=== PATIENT | male | born 1970 | race Caucasian/White ===

== ENCOUNTER 2020-08-23 03:29 | Emergency (ER) | payer BC ==
[2020-08-23 03:39] VITALS: RESP 18
[2020-08-23] MEDS ORDERED: KETOROLAC 15 MG/ML 1 ML VIAL IVP STA (03:55)
[2020-08-23] MEDS ORDERED: HYDROmorphone 0.5 MG/0.5 ML SYRINGE IVP STA ×2 (03:55→06:24)
[2020-08-23] MEDS ORDERED: ONDANSETRON 4 MG/2 ML VIAL IVP STA (03:55)
[2020-08-23 04:03] LABS: Basophils # (A) 0.1 k/uL (0-0.2); Basophils % (A) 1 %; Eosinophils # (A) 0.2 k/uL (0-0.7); Eosinophils % (A) 2 %; HCT 42.6 % (39.0-53.0); HGB 14.9 gm/dL (13.0-17.5); Lymphocytes # (A) 4.2 k/uL (1.0-4.8); Lymphocytes % (A) 50 %; MCH 32.5 pg (25.0-35.0); MCHC 35.1 g/dL (31.0-37.0); MCV 92.6 fL (80.0-100.0); Mean Platelet Volume 7.1; Monocytes # (A) 0.6 k/uL (0-1.0); Monocytes % (A) 8 %; Neutrophils # (A) 3.1 k/uL (1.3-7.7); Neutrophils % (A) 37 %; Platelet Count 305 k/uL (150-450); RDW 11.8 % (11.5-15.5); WBC 8.4 k/uL (3.8-10.6)
--- NOTE | 2020-08-23 04:08 | ED ---
Abdominal Pain HPI - General Chief Complaint: Back Pain/Injury Stated Complaint: Possible kidney stone Time Seen by Provider: 08/23/20 03:50 Source: patient Mode of arrival: ambulatory Limitations: no limitations - History of Present Illness Initial Comments: This patient is 50-year-old man presenting with pain that he states is similar to previous episode of kidney stone. MD Complaint: flank pain Onset/Timin -: hour(s) Location: L flank Radiation: none Migration to: no migration Severity: severe Quality: sharp Consistency: constant Improves With: nothing Worsens With: nothing Associated Symptoms: nausea, vomiting - Related Data Home Medications Medication Instructions Recorded Confirmed Ondansetron Odt [Zofran ODT] 4 mg PO Q8HR PRN 08/23/20 08/23/20 Previous Rx's Medication Instructions Recorded HYDROcodone/APAP 5-325MG [[place] 1 tab PO Q4HR PRN 3 Days #18 tab 08/23/20 5-325] Tamsulosin [Flomax] 0.4 mg PO DAILY #14 cap 08/23/20 Allergies Allergy/AdvReac Type Severity Reaction Status Date / Time meperidine [From Demerol] Allergy Nausea & Verified 08/23/20 15:58 Vomiting & Diarrhea Review of Systems ROS Statement: Those systems with pertinent positive or pertinent negative responses have been documented in the HPI. ROS Other: All systems not noted in ROS Statement are negative. Constitutional: Denies: fever, chills Respiratory: Denies: cough, dyspnea Cardiovascular: Denies: chest pain, palpitations, edema Gastrointestinal: Reports: as per HPI, abdominal pain, nausea, vomiting. Denies: diarrhea, constipation Genitourinary: Denies: dysuria, frequency, hematuria, testicular pain, testicular mass Musculoskeletal: Denies: back pain Skin: Denies: rash Neurological: Denies: headache Past Medical History Additional Past Medical History / Comment(s): Kindey stones, broken neck History of Any Multi-Drug Resistant Organisms: None Reported Past Surgical History: Appendectomy Past Psychological History: No Psychological Hx Reported Smoking Status: Never smoker Past Alcohol Use History: Rare Past Drug Use History: None Reported General Exam Limitations: no limitations General appearance: alert, in distress Head exam: Present: atraumatic, normocephalic Eye exam: Present: normal appearance. Absent: scleral icterus, conjunctival injection Neck exam: Present: normal inspection, full ROM Respiratory exam: Present: normal lung sounds bilaterally. Absent: respiratory distress, wheezes, rales, rhonchi, stridor Cardiovascular Exam: Present: regular rate, normal rhythm, normal heart sounds. Absent: systolic murmur, diastolic murmur, rubs, gallop GI/Abdominal exam: Present: soft. Absent: distended, tenderness, guarding, rebound, rigid, mass Extremities exam: Present: normal inspection, normal capillary refill. Absent: pedal edema, calf tenderness Back exam: Present: normal inspection, CVA tenderness (L). Absent: CVA tenderness (R) Neurological exam: Present: alert Skin exam: Present: warm, dry, intact, normal color. Absent: rash Course Vital Signs 08/23/20 08/23/20 03:37 06:55 Temperature 97.4 F L 98.0 F Pulse Rate 85 57 L Respiratory 18 18 Rate Blood Pressure 119/73 121/78 O2 Sat by Pulse 100 98 Oximetry Medical Decision Making - Lab Data Result diagrams: 08/23/20 03:54 08/23/20 03:54 Lab Results 08/23/20 08/23/20 Range/Units 03:54 03:54 WBC 8.4 (3.8-10.6) k/uL RBC 4.60 (4.30-5.90) m/uL Hgb 14.9 (13.0-17.5) gm/dL Hct 42.6 (39.0-53.0) % MCV 92.6 (80.0-100.0) fL MCH 32.5 (25.0-35.0) pg MCHC 35.1 (31.0-37.0) g/dL RDW 11.8 (11.5-15.5) % Plt Count 305 (150-450) k/uL MPV 7.1 Neutrophils % 37 % Lymphocytes % 50 % Monocytes % 8 % Eosinophils % 2 % Basophils % 1 % Neutrophils # 3.1 (1.3-7.7) k/uL Lymphocytes # 4.2 (1.0-4.8) k/uL Monocytes # 0.6 (0-1.0) k/uL Eosinophils # 0.2 (0-0.7) k/uL Basophils # 0.1 (0-0.2) k/uL Sodium 139 (137-145) mmol/L Potassium 3.2 L (3.5-5.1) mmol/L Chloride 108 H (98-107) mmol/L Carbon Dioxide 21 L (22-30) mmol/L Anion Gap 10 mmol/L BUN 18 (9-20) mg/dL Creatinine 1.15 (0.66-1.25) mg/dL Est GFR (CKD-EPI)AfAm 85 (>60 ml/min/1.73 sqM) Est GFR (CKD-EPI)NonAf 74 (>60 ml/min/1.73 sqM) Glucose 103 H (74-99) mg/dL Calcium 9.9 (8.4-10.2) mg/dL Total Bilirubin 0.6 (0.2-1.3) mg/dL AST 46 (17-59) U/L ALT 46 (4-49) U/L Alkaline Phosphatase 105 (38-126) U/L Total Protein 7.3 (6.3-8.2) g/dL Albumin 4.6 (3.5-5.0) g/dL Amylase 60 (30-110) U/L Lipase 137 (23-300) U/L Disposition Clinical Impression: Calculus of kidney Disposition: HOME SELF-CARE Condition: Good Instructions (If sedation given, give patient instructions): Kidney Stones (ED) Prescriptions: Tamsulosin [Flomax] 0.4 mg PO DAILY #14 cap HYDROcodone/APAP 5-325MG [[place] 5-325] 1 tab PO Q4HR PRN 3 Days #18 tab PRN Reason: Pain Is patient prescribed a controlled substance at d/c from ED?: Yes When asked, does pt state using other controlled substances?: No If prescribed controlled substance>3 days was MAPS reviewed?: Prescribed <3 Days If opioid is for acute pain is fill amount 7 days or less?: Yes If Rx opioid, was Start Talking consent form obtained?: Yes Referrals: Corona Ware MD [Primary Care Provider] - 1-2 days Rudy Corrigan MD [STAFF PHYSICIAN] - 1-2 days
[2020-08-23 04:11] LABS: Albumin 4.6 g/dL (3.5-5.0); Calcium 9.9 mg/dL (8.4-10.2); Potassium 3.2 mmol/L (3.5-5.1); Total Bilirubin 0.6 mg/dL (0.2-1.3); Total Protein 7.3 g/dL (6.3-8.2)
[2020-08-23] MEDS ORDERED: TAMSULOSIN 0.4 MG CAP.ER.24H PO STA (05:01)
--- NOTE | 2020-08-23 05:18 | CT ---
EXAM: CT Abdomen and Pelvis Without Intravenous Contrast CLINICAL HISTORY: ITS.REASON CT Reason: stone protocol, l flank pain TECHNIQUE: Axial computed tomography images of the abdomen and pelvis without intravenous contrast. CTDI is 13.07 mGy and DLP is 779.3 mGy-cm. This CT exam was performed using one or more of the following dose reduction techniques: automated exposure control, adjustment of the mA and/or kV according to patient size, and/or use of iterative reconstruction technique. COMPARISON: No relevant prior studies available. FINDINGS: Lung bases: Unremarkable. No mass. No consolidation. ABDOMEN: Liver: Unremarkable. Gallbladder and bile ducts: Unremarkable. No calcified stones. No ductal dilation. Pancreas: Unremarkable. No ductal dilation. Spleen: Unremarkable. No splenomegaly. Adrenals: Unremarkable. No mass. Kidneys and ureters: Left-sided proximal ureteral stone measuring up to 3 mm with mild left hydroureteronephrosis. Stomach and bowel: Unremarkable. No obstruction. No mucosal thickening. PELVIS: Appendix: Surgically absent. Bladder: Unremarkable. No stones. Reproductive: Unremarkable as visualized. ABDOMEN and PELVIS: Intraperitoneal space: Unremarkable. No free air. No significant fluid collection. Bones/joints: No acute fracture. No dislocation. Soft tissues: Unremarkable. Vasculature: Unremarkable. No abdominal aortic aneurysm. Lymph nodes: Unremarkable. No enlarged lymph nodes. IMPRESSION: Left-sided proximal ureteral stone measuring up to 3 mm with mild left hydroureteronephrosis.
[2020-08-23 06:56] VITALS: BP 121/78; PULSE 57; TEMP 98
== END 2020-08-23 07:08 ==
LOC: EC 03:29
DX: N20.0 Calculus of kidney (principal); Z90.89 Acquired absence of other organs
CPT/HCPCS: 74176; 80053; 82150; 83690; 85025; 96374; 96375; 96376; 99284

== ENCOUNTER 2020-08-23 14:42 | Emergency (ER) | payer BC ==
[2020-08-23 14:58] VITALS: BP 108/75; PULSE 85; RESP 18; TEMP 97.7
[2020-08-23] MEDS ORDERED: SODIUM CHLORIDE 0.9% 1,000 ML IV ONE (15:16)
[2020-08-23] MEDS ORDERED: KETOROLAC 15 MG/ML 1 ML VIAL IVP STA (15:16)
[2020-08-23] MEDS ORDERED: HYDROmorphone 0.5 MG/0.5 ML SYRINGE IVP STA (15:16)
[2020-08-23 15:32] LABS: Basophils % (A) 0 %; Eosinophils # (A) 0.2 k/uL (0-0.7); Eosinophils % (A) 2 %; HCT 43.5 % (39.0-53.0); HGB 15.1 gm/dL (13.0-17.5); Lymphocytes # (A) 1.3 k/uL (1.0-4.8); Lymphocytes % (A) 17 %; MCH 32.1 pg (25.0-35.0); MCHC 34.6 g/dL (31.0-37.0); MCV 92.7 fL (80.0-100.0); Mean Platelet Volume 7.3; Monocytes # (A) 0.4 k/uL (0-1.0); Monocytes % (A) 5 %; Neutrophils # (A) 5.9 k/uL (1.3-7.7); Neutrophils % (A) 76 %; Platelet Count 318 k/uL (150-450); RBC 4.69 m/uL (4.30-5.90); RDW 11.8 % (11.5-15.5); WBC 7.7 k/uL (3.8-10.6)
--- NOTE | 2020-08-23 15:36 | ED ---
General Adult HPI - General Chief complaint: Urogenital Stated complaint: kidney stone Time Seen by Provider: 08/23/20 15:05 Source: patient, RN notes reviewed, old records reviewed Mode of arrival: ambulatory Limitations: no limitations - History of Present Illness Initial comments: 50-year-old male presenting for reevaluation of left flank pain and vomiting. Patient was seen in the emergency department earlier today diagnosed with a 3 mm left obstructing renal stone and renal colic. He has been attempting to take medications prescribed at home but his had persistent vomiting. He was discharged with [place], Flomax, Zofran. He's had persistent pain and has developed some right-sided pain as well which she bleeds may be related to vomiting. No fever. Patient is otherwise healthy. - Related Data Home Medications Medication Instructions Recorded Confirmed Ondansetron Odt [Zofran ODT] 4 mg PO Q8HR PRN 08/23/20 08/23/20 Previous Rx's Medication Instructions Recorded HYDROcodone/APAP 5-325MG [[place] 1 tab PO Q4HR PRN 3 Days #18 tab 08/23/20 5-325] Tamsulosin [Flomax] 0.4 mg PO DAILY #14 cap 08/23/20 Allergies Allergy/AdvReac Type Severity Reaction Status Date / Time meperidine [From Demerol] Allergy Nausea & Verified 08/23/20 15:58 Vomiting & Diarrhea Review of Systems ROS Statement: Those systems with pertinent positive or pertinent negative responses have been documented in the HPI. ROS Other: All systems not noted in ROS Statement are negative. Past Medical History Additional Past Medical History / Comment(s): Kindey stones, broken neck History of Any Multi-Drug Resistant Organisms: None Reported Past Surgical History: Appendectomy Past Psychological History: No Psychological Hx Reported Smoking Status: Never smoker Past Alcohol Use History: Rare Past Drug Use History: None Reported General Exam Limitations: no limitations General appearance: alert, in no apparent distress Head exam: Present: atraumatic, normocephalic Eye exam: Present: normal appearance, PERRL ENT exam: Present: normal exam Neck exam: Present: normal inspection. Absent: tenderness, meningismus Respiratory exam: Present: normal lung sounds bilaterally. Absent: respiratory distress, wheezes Cardiovascular Exam: Present: regular rate, normal rhythm GI/Abdominal exam: Present: soft. Absent: distended, tenderness, guarding Extremities exam: Present: normal inspection, normal capillary refill Back exam: Present: normal inspection, full ROM, CVA tenderness (L) Neurological exam: Present: alert, oriented X3, CN II-XII intact. Absent: motor sensory deficit Psychiatric exam: Present: anxious Skin exam: Present: warm, dry, intact. Absent: cyanosis, diaphoretic Course Vital Signs 08/23/20 14:55 Temperature 97.7 F Pulse Rate 85 Respiratory 18 Rate Blood Pressure 108/75 O2 Sat by Pulse 100 Oximetry - Reevaluation(s) Reevaluation #1: 08/23/20 17:21 Patient reevaluated, resting comfortably, no further pain no further vomiting. Patient eager for discharge. Medical Decision Making - Medical Decision Making Repeat visit for renal colic, normal CBC, normal CMP, patient's pain control in the emergency department. He wishes to be discharged with close outpatient follow-up. He will strain his urine. He's been given a prescription for [place], Flomax, Zofran he will also take 600 mg Motrin 3 times daily. Patient will return with worsening or changing symptoms he will follow-up with urology. - Lab Data Result diagrams: 08/23/20 15:23 08/23/20 15:23 Lab Results 08/23/20 08/23/20 Range/Units 15:23 15:23 WBC 7.7 (3.8-10.6) k/uL RBC 4.69 (4.30-5.90) m/uL Hgb 15.1 (13.0-17.5) gm/dL Hct 43.5 (39.0-53.0) % MCV 92.7 (80.0-100.0) fL MCH 32.1 (25.0-35.0) pg MCHC 34.6 (31.0-37.0) g/dL RDW 11.8 (11.5-15.5) % Plt Count 318 (150-450) k/uL MPV 7.3 Neutrophils % 76 % Lymphocytes % 17 % Monocytes % 5 % Eosinophils % 2 % Basophils % 0 % Neutrophils # 5.9 (1.3-7.7) k/uL Lymphocytes # 1.3 (1.0-4.8) k/uL Monocytes # 0.4 (0-1.0) k/uL Eosinophils # 0.2 (0-0.7) k/uL Basophils # 0.0 (0-0.2) k/uL Sodium 141 (137-145) mmol/L Potassium 4.4 (3.5-5.1) mmol/L Chloride 107 (98-107) mmol/L Carbon Dioxide 25 (22-30) mmol/L Anion Gap 9 mmol/L BUN 17 (9-20) mg/dL Creatinine 1.13 (0.66-1.25) mg/dL Est GFR (CKD-EPI)AfAm 87 (>60 ml/min/1.73 sqM) Est GFR (CKD-EPI)NonAf 75 (>60 ml/min/1.73 sqM) Glucose 115 H (74-99) mg/dL Calcium 10.2 (8.4-10.2) mg/dL Disposition Clinical Impression: Calculus of kidney Disposition: HOME SELF-CARE Condition: Good Is patient prescribed a controlled substance at d/c from ED?: No Referrals: Corona Ware MD [Primary Care Provider] - 1-2 days Aravind Guillen MD [STAFF PHYSICIAN] - 1-2 days Time of Disposition: 17:22
[2020-08-23 15:41] LABS: Calcium 10.2 mg/dL (8.4-10.2); Potassium 4.4 mmol/L (3.5-5.1)
[2020-08-23] MEDS ORDERED: ONDANSETRON 4 MG/2 ML VIAL IVP STA (15:46)
[2020-08-23 17:22] LABS: Appearance,Urine Clear (Clear); Bilirubin,Urine Negative (Negative); Blood,Urine Large (Negative); Color,Urine Yellow; Glucose,Urine (UA) Negative (Negative); Ketones,Urine 1+ (Negative); Leukocyte Esterase,Urine Negative (Negative); Mucus,Urine Occasional /hpf; Nitrite,Urine Negative (Negative); PH, Urine 8.5 (5.0-8.0); Protein,Urine Trace (Negative); RBC,Urine >182 /hpf (0-5); Specific Gravity,Urine 1.016 (1.001-1.035); Squamous Epithelial Cell,Urine <1 /hpf (0-4); Urobilinogen,Urine <2.0 mg/dL (<2.0); WBC,Urine 15 /hpf (0-5)
== END 2020-08-23 17:46 | disposition home or self-care (01) ==
LOC: EC 14:42
DX: N20.0 Calculus of kidney (principal); Z90.89 Acquired absence of other organs
CPT/HCPCS: 36415; 80048; 81001; 85025; 87086; 96361; 96374; 96375; 99284

== ENCOUNTER 2020-08-27 21:49 | Observation (INO) | payer BC ==
[2020-08-27] MEDS ORDERED: KETOROLAC 15 MG/ML 1 ML VIAL IVP STA (22:15)
[2020-08-27] MEDS ORDERED: HYDROmorphone 1 MG/ML 1 ML SYRINGE IVP STA (22:15)
--- NOTE | 2020-08-27 22:15 | ED ---
Abdominal Pain HPI - General Chief Complaint: Urogenital Stated Complaint: Revisit Kidney Stone Time Seen by Provider: 08/27/20 21:54 Source: patient Mode of arrival: ambulatory Limitations: no limitations - History of Present Illness Initial Comments: This patient is a 50-year-old man who presents with left flank pain, urinary frequency and urgency. Patient had been seen here on Friday and diagnosed with kidney stone. He returned that same day later on for further pain management. Patient states that he had gone home and things were doing okay though there was a little bit of pain, and then it intensified this afternoon and he also has a constant urge to urinate. MD Complaint: flank pain -: days(s) Location: L flank Radiation: none Severity: severe Quality: sharp, burning Consistency: colicky Improves With: nothing Worsens With: nothing Associated Symptoms: nausea, vomiting, other (Urinary frequency) Treatments Prior to Arrival: prescription analgesics - Related Data Home Medications Medication Instructions Recorded Confirmed Ondansetron Odt [Zofran ODT] 4 mg PO Q8HR PRN 08/23/20 08/27/20 Previous Rx's Medication Instructions Recorded HYDROcodone/APAP 5-325MG [[place] 1 tab PO Q4HR PRN 3 Days #18 tab 08/23/20 5-325] Tamsulosin [Flomax] 0.4 mg PO DAILY #14 cap 08/23/20 Allergies Allergy/AdvReac Type Severity Reaction Status Date / Time meperidine [From Demerol] Allergy Nausea & Verified 08/27/20 22:41 Vomiting & Diarrhea Review of Systems ROS Statement: Those systems with pertinent positive or pertinent negative responses have been documented in the HPI. ROS Other: All systems not noted in ROS Statement are negative. Constitutional: Denies: fever, chills Respiratory: Denies: cough, dyspnea Cardiovascular: Denies: chest pain, palpitations, edema Gastrointestinal: Reports: as per HPI, abdominal pain, nausea, vomiting. Denies: diarrhea, constipation Genitourinary: Reports: as per HPI, urgency, frequency. Denies: dysuria, hem aturia, testicular pain, testicular mass Musculoskeletal: Denies: back pain Skin: Denies: rash Neurological: Denies: headache, weakness Past Medical History Additional Past Medical History / Comment(s): Kindey stones, broken neck History of Any Multi-Drug Resistant Organisms: None Reported Past Surgical History: Appendectomy Past Psychological History: No Psychological Hx Reported Smoking Status: Never smoker Past Alcohol Use History: Rare Past Drug Use History: None Reported General Exam Limitations: no limitations General appearance: alert, in no apparent distress Head exam: Present: atraumatic, normocephalic Eye exam: Present: normal appearance. Absent: scleral icterus, conjunctival injection ENT exam: Present: normal oropharynx Respiratory exam: Present: normal lung sounds bilaterally. Absent: respiratory distress, wheezes, rales, rhonchi, stridor Cardiovascular Exam: Present: regular rate, normal rhythm, normal heart sounds. Absent: systolic murmur, diastolic murmur, rubs, gallop GI/Abdominal exam: Present: soft. Absent: distended, tenderness, guarding, rebound, rigid, mass Extremities exam: Present: normal inspection, normal capillary refill. Absent: pedal edema, calf tenderness Back exam: Present: normal inspection, CVA tenderness (L). Absent: CVA tenderness (R), vertebral tenderness Neurological exam: Present: alert Skin exam: Present: warm, dry, intact, normal color. Absent: rash Course Vital Signs 08/27/20 08/27/20 08/28/20 21:50 22:47 03:00 Temperature 98.8 F Pulse Rate 98 78 86 Respiratory 20 22 18 Rate Blood Pressure 161/67 143/93 129/85 O2 Sat by Pulse 99 100 97 Oximetry 08/28/20 08/28/20 08/28/20 04:00 06:00 07:36 Temperature Pulse Rate 71 75 59 L Respiratory 18 18 16 Rate Blood Pressure 140/93 127/94 138/72 O2 Sat by Pulse 95 95 98 Oximetry 08/28/20 08/28/20 09:36 13:31 Temperature 98.0 F Pulse Rate 64 87 Respiratory 16 16 Rate Blood Pressure 144/93 137/87 O2 Sat by Pulse 96 98 Oximetry Medical Decision Making - Lab Data Result diagrams: 08/27/20 22:25 08/27/20 22:25 Lab Results 08/27/20 08/27/20 08/27/20 Range/Units 22:25 22:25 22:25 WBC 5.3 (3.8-10.6) k/uL RBC 4.46 (4.30-5.90) m/uL Hgb 14.0 (13.0-17.5) gm/dL Hct 42.4 (39.0-53.0) % MCV 95.1 (80.0-100.0) fL MCH 31.4 (25.0-35.0) pg MCHC 33.0 (31.0-37.0) g/dL RDW 12.6 (11.5-15.5) % Plt Count 287 (150-450) k/uL MPV 7.0 Neutrophils % 50 % Lymphocytes % 38 % Monocytes % 7 % Eosinophils % 3 % Basophils % 1 % Neutrophils # 2.7 (1.3-7.7) k/uL Lymphocytes # 2.0 (1.0-4.8) k/uL Monocytes # 0.4 (0-1.0) k/uL Eosinophils # 0.2 (0-0.7) k/uL Basophils # 0.0 (0-0.2) k/uL Sodium 140 (137-145) mmol/L Potassium 4.1 (3.5-5.1) mmol/L Chloride 105 (98-107) mmol/L Carbon Dioxide 27 (22-30) mmol/L Anion Gap 8 mmol/L BUN 15 (9-20) mg/dL Creatinine 1.30 H (0.66-1.25) mg/dL Est GFR (CKD-EPI)AfAm 73 (>60 ml/min/1.73 sqM) Est GFR (CKD-EPI)NonAf 63 (>60 ml/min/1.73 sqM) Glucose 94 (74-99) mg/dL Calcium 9.8 (8.4-10.2) mg/dL Total Bilirubin 0.5 (0.2-1.3) mg/dL AST 37 (17-59) U/L ALT 41 (4-49) U/L Alkaline Phosphatase 100 (38-126) U/L Total Protein 6.8 (6.3-8.2) g/dL Albumin 4.3 (3.5-5.0) g/dL Amylase 52 (30-110) U/L Lipase 97 (23-300) U/L Urine Color Colorless Urine Appearance Clear (Clear) Urine pH 6.5 (5.0-8.0) Ur Specific [place] 1.006 (1.001-1.035) Urine Protein Negative (Negative) Urine Glucose (UA) Negative (Negative) Urine Ketones Negative (Negative) Urine Blood Small H (Negative) Urine Nitrite Negative (Negative) Urine Bilirubin Negative (Negative) Urine Urobilinogen <2.0 (<2.0) mg/dL Ur Leukocyte Esterase Negative (Negative) Urine RBC 2 (0-5) /hpf Urine WBC <1 (0-5) /hpf Urine Mucus Rare H (None) /hpf Disposition Clinical Impression: Calculus of kidney Disposition: ADMITTED IP TO THIS HOSP Condition: Stable Is patient prescribed a controlled substance at d/c from ED?: No
[2020-08-27] MEDS ORDERED: ACETAMINOPHEN TAB 325 MG TAB PO PRN (22:31)
[2020-08-27] MEDS ORDERED: KETOROLAC 15 MG/ML 1 ML VIAL IVP PRN (22:31)
[2020-08-27] MEDS ORDERED: NALOXONE 0.4 MG/ML 1 ML VIAL IV PRN (22:31)
[2020-08-27] MEDS ORDERED: ONDANSETRON 4 MG/2 ML VIAL IVP PRN (22:31)
[2020-08-27 22:41] LABS: Basophils % (A) 1 %; Eosinophils # (A) 0.2 k/uL (0-0.7); Eosinophils % (A) 3 %; HCT 42.4 % (39.0-53.0); Lymphocytes % (A) 38 %; MCH 31.4 pg (25.0-35.0); MCV 95.1 fL (80.0-100.0); Monocytes # (A) 0.4 k/uL (0-1.0); Monocytes % (A) 7 %; Neutrophils # (A) 2.7 k/uL (1.3-7.7); Neutrophils % (A) 50 %; Platelet Count 287 k/uL (150-450); RBC 4.46 m/uL (4.30-5.90); RDW 12.6 % (11.5-15.5); WBC 5.3 k/uL (3.8-10.6)
[2020-08-27 22:42] LABS: Appearance,Urine Clear (Clear); Bilirubin,Urine Negative (Negative); Blood,Urine Small (Negative); Color,Urine Colorless; Glucose,Urine (UA) Negative (Negative); Ketones,Urine Negative (Negative); Leukocyte Esterase,Urine Negative (Negative); Mucus,Urine Rare /hpf; Nitrite,Urine Negative (Negative); PH, Urine 6.5 (5.0-8.0); Protein,Urine Negative (Negative); RBC,Urine 2 /hpf (0-5); Specific Gravity,Urine 1.006 (1.001-1.035); Urobilinogen,Urine <2.0 mg/dL (<2.0); WBC,Urine <1 /hpf (0-5)
[2020-08-27 22:51] LABS: Albumin 4.3 g/dL (3.5-5.0); Calcium 9.8 mg/dL (8.4-10.2); Potassium 4.1 mmol/L (3.5-5.1); Total Bilirubin 0.5 mg/dL (0.2-1.3); Total Protein 6.8 g/dL (6.3-8.2)
[2020-08-27] MEDS: SODIUM CHLORIDE 0.9% 1,000 ML IV SCH (23:19)
--- NOTE | 2020-08-28 00:09 | XR ---
EXAMINATION TYPE: XR KUB DATE OF EXAM: 08/27/2020 COMPARISON: 11/25/2012 HISTORY: Kidney stone TECHNIQUE: 2 views FINDINGS: Bowel gas pattern is normal. There is no sign of intestinal obstruction or pneumoperitoneum . Fecal pattern is normal. There are phleboliths in the pelvis. I see no definite calculus over the k idneys. Lung bases are clear. IMPRESSION: Nonacute abdomen. No adverse change.
[2020-08-28] MEDS ORDERED: PANTOPRAZOLE 40 MG/10 ML VIAL IV SCH (09:00)
[2020-08-28] MEDS ORDERED: TAMSULOSIN 0.4 MG CAP.ER.24H PO SCH (09:00)
[2020-08-28] MEDS: HYDROmorphone 1 MG/ML 1 ML SYRINGE IVP PRN ×2 (09:34→17:16)
--- NOTE | 2020-08-28 11:03 | P.GSHP ---
History of Present Illness H&P Date: 08/28/20 60-year-old male with history of a 4 mm left-sided proximal ureteral stone. He's had 3 ED presentation secondary to his stone. This a.m. he still having intractable pain. His pain is associated with nausea without vomiting. Denies any dysuria or gross hematuria. He indicates his left flank pain is radiating down to his testicle and groin. He has history of kidney stones in the past which he passed spontaneously. CT reviewed which showed evidence of a 4 mm left-sided proximal stone with hydronephrosis, his UA is negative - Constitutional Constitutional: Denies chills, Denies fever - Cardiovascular Cardiovascular: Denies chest pain, Denies shortness of breath - Respiratory Respiratory: Denies cough, Denies 7 - Gastrointestinal Gastrointestinal: Reports abdominal pain, Reports nausea, Denies vomiting - Genitourinary (Male) Genitourinary: Reports flank pain, Reports kidney stones, Reports testicular pain, Denies dysuria, Denies hematuria - Integumentary Integumentary: Denies pruritus, Denies rash - Neurological Neurological: Reports as per HPI Past Medical History Additional Past Medical History / Comment(s): Kindey stones, broken neck History of Any Multi-Drug Resistant Organisms: None Reported Past Surgical History: Appendectomy Past Psychological History: No Psychological Hx Reported Smoking Status: Never smoker Past Alcohol Use History: Rare Past Drug Use History: None Reported Medications and Allergies Home Medications Medication Instructions Recorded Confirmed Type HYDROcodone/APAP 5-325MG [[place] 1 tab PO Q4HR PRN 3 Days #18 tab 08/23/20 08/27/20 Rx 5-325] Ondansetron Odt [Zofran ODT] 4 mg PO Q8HR PRN 08/23/20 08/27/20 History Tamsulosin [Flomax] 0.4 mg PO DAILY #14 cap 08/23/20 08/27/20 Rx Allergies Allergy/AdvReac Type Severity Reaction Status Date / Time meperidine [From Demerol] Allergy Nausea & Verified 08/27/20 22:41 Vomiting & Diarrhea Surgical - Exam Vital Signs Temp Pulse Resp BP Pulse Ox 98.8 F 98 20 161/67 99 08/27/20 21:50 08/27/20 21:50 08/27/20 21:50 08/27/20 21:50 08/27/20 21:50 - General well developed, well nourished, moderate distress, moderate pain - Eyes PERRL - ENT normal nares, normal mucosa - Respiratory normal expansion, normal respiratory effort - Abdomen Abdomen: soft, no non tender, no distended - Psychiatric oriented to time, oriented to person, oriented to place, speech is normal Results - Labs 08/27/20 22:25 08/27/20 22:25 Abnormal Lab Results - Last 24 Hours (Table) 08/27/20 08/27/20 Range/Units 22:25 22:25 Creatinine 1.30 H (0.66-1.25) mg/dL Urine Blood Small H (Negative) Urine Mucus Rare H (None) /hpf Diabetes panel 08/27/20 Range/Units 22:25 Sodium 140 (137-145) mmol/L Potassium 4.1 (3.5-5.1) mmol/L Chloride 105 (98-107) mmol/L Carbon Dioxide 27 (22-30) mmol/L BUN 15 (9-20) mg/dL Creatinine 1.30 H (0.66-1.25) mg/dL Glucose 94 (74-99) mg/dL Calcium 9.8 (8.4-10.2) mg/dL AST 37 (17-59) U/L ALT 41 (4-49) U/L Alkaline Phosphatase 100 (38-126) U/L Total Protein 6.8 (6.3-8.2) g/dL Albumin 4.3 (3.5-5.0) g/dL Calcium panel 08/27/20 Range/Units 22:25 Calcium 9.8 (8.4-10.2) mg/dL Albumin 4.3 (3.5-5.0) g/dL Pituitary panel 08/27/20 Range/Units 22:25 Sodium 140 (137-145) mmol/L Potassium 4.1 (3.5-5.1) mmol/L Chloride 105 (98-107) mmol/L Carbon Dioxide 27 (22-30) mmol/L BUN 15 (9-20) mg/dL Creatinine 1.30 H (0.66-1.25) mg/dL Glucose 94 (74-99) mg/dL Calcium 9.8 (8.4-10.2) mg/dL Adrenal panel 05/30/21 Range/Units 22:25 Sodium 140 (137-145) mmol/L Potassium 4.1 (3.5-5.1) mmol/L Chloride 105 (98-107) mmol/L Carbon Dioxide 27 (22-30) mmol/L BUN 15 (9-20) mg/dL Creatinine 1.30 H (0.66-1.25) mg/dL Glucose 94 (74-99) mg/dL Calcium 9.8 (8.4-10.2) mg/dL Total Bilirubin 0.5 (0.2-1.3) mg/dL AST 37 (17-59) U/L ALT 41 (4-49) U/L Alkaline Phosphatase 100 (38-126) U/L Total Protein 6.8 (6.3-8.2) g/dL Albumin 4.3 (3.5-5.0) g/dL - Imaging CT scan - abdomen: image reviewed (4 mm left-sided ureteral stone, causing hydronephrosis) Assessment and Plan Assessment: 50-year-old male with history of a 4 mm left-sided ureteral stone, has had 3 ED presentation secondary to stone. This a.m. his pain still intractable. Option of medical expulsive therapy and ureteroscopy was discussed with him. He agreed to proceed with left-sided ureteroscopy with holmium laser. Discussed with him the risk of bleeding, infection, injury to the ureter. Plan: -Keep NPO -OR for left-sided ureteroscopy, with holmium laser and stent placement
[2020-08-28] MEDS: SODIUM CHLORIDE 0.9% 1,000 ML IV SCH (13:52)
[2020-08-28] MEDS ORDERED: ONDANSETRON 4 MG/2 ML VIAL ONE (15:27)
[2020-08-28] MEDS ORDERED: LIDOCAINE 1% INJ 10MG/ML (20 ML MDV) ONE (15:27)
[2020-08-28] MEDS ORDERED: MIDAZOLAM 2 MG/2 ML VIAL ONE (15:27)
[2020-08-28] MEDS ORDERED: PROPOFOL 10 MG/ML 20 ML VIAL IV ONE (15:27)
[2020-08-28] MEDS ORDERED: fentaNYL (PF) 50 MCG/ML 2 ML AMP ONE (15:27)
[2020-08-28] MEDS ORDERED: IV FLUID CONTINUATION 1,000 ML IV ONE (15:29)
[2020-08-28] MEDS ORDERED: SODIUM CHLORIDE 0.9% 100 ML with ceFAZolin 2,000 MG IV ONE ×2 (15:38)
[2020-08-28] MEDS ORDERED: IOPAMIDOL-370 50ML BTL MISCELLANE ONE (15:53)
[2020-08-28] MEDS ORDERED: LACTATED RINGERS 1,000 ML IV ONE (15:56)
--- NOTE | 2020-08-28 17:03 | P.OP ---
Date of Procedure: 08/28/20 Preoperative Diagnosis: Left ureteral stone Postoperative Diagnosis: Same Procedure(s) Performed: Cystoscopy, left ureteroscopy, ureteral balloon dilation, holmium laser lithotripsy, stone basketing, retrograde pyelogram, and stent placement Implants: 6-German by 26 cm stent left on a string in the left ureter Anesthesia: RENUKA Surgeon: Rudy Corrigan Estimated Blood Loss (ml): 5 Pathology: other (left ureteral stone) Condition: stable Disposition: PACU Indications for Procedure: 50-year-old male with history of a 4 mm left-sided ureteral stone, has had 3 ED presentation secondary to stone. This a.m. his pain still intractable. Option of medical expulsive therapy and ureteroscopy was discussed with him. He agreed to proceed with left-sided ureteroscopy with holmium laser. Discussed with him the risk of bleeding, infection, injury to the ureter. He understood all the risk and agreed to proceed with left-sided ureteroscopy with holmium laser lithotripsy and stent placement Operative Findings: Left narrowed UVJ, stone within the distal ureter Description of Procedure: She was brought to the operating room, general anesthesia was induced. He was prepped and draped in sterile fashion a placement dorsal lithotomy position. Cystoscopy fitted with a 21-German sheath was inserted per urethra, cystoscopy was performed which showed no abnormality within the bladder. Attention was then carried to the left ureteral orifice, of note the left ureteral orifice was significantly narrowed. At this time a sensor wire was advanced through the ureteral orifice under fluoroscopy. The wire curl was seen in the renal pelvis. Next a ureteral balloon dilator was passed over the wire and under fluoroscopy the UVJ was dilated. At this time the balloon dilator was removed and a semirigid ureteroscope was inserted per urethra, was advanced up the left ureteral orifice, stone was encountered in the distal ureter. Using the holmium laser the stone was fragmented into small fragments, sizable fragments were removed using the stone basket and sent for analysis. At this time the ureteroscope was advanced all the way up to the proximal ureter, and no fragments was seen, pullback ureteroscopy was performed which showed no sizable fragments or injury to the ureter, retrograde pyelogram was performed through the ureteroscope which showed no filling defect within the kidney. As the uret eroscope was withdrawn and a sensor wire was advanced through. Next a ureteral stent was passed over the wire, the proximal curl was visually was on fluoroscopy and the distal curl was visualized using the cystoscope. Stent was left on a string, and taped to the patient penis. The bladder was emptied at the end of the case. Patient tolerated the procedure well was taken to PACU in stable condition
--- NOTE | 2020-08-28 17:05 | P.DS ---
Providers Date of admission: 08/27/20 22:31 Attending physician: Rudy Corrigan MD Primary care physician: Corona Ware MD Hospital Course: This 60-year-old male with history of a 4 mm left-sided ureteral stone. He was admitted to the hospital due to intractable pain. He was taken to the OR for left-sided ureteroscopy with holmium laser on august 28, please see op note dated August 28 for full Surgery detail. He was discharged home following surgery. At time of discharge was tolerating a diet, pain was controlled. He was advised to follow up in 1-2 weeks for stent removal Plan - Discharge Summary Discharge Rx Participant: No New Discharge Prescriptions: No Action Tamsulosin [Flomax] 0.4 mg PO DAILY #14 cap HYDROcodone/APAP 5-325MG [[place] 5-325] 1 tab PO Q4HR PRN 3 Days #18 tab PRN Reason: Pain Ondansetron Odt [Zofran ODT] 4 mg PO Q8HR PRN PRN Reason: Nausea And Vomiting Discharge Medication List HYDROcodone/APAP 5-325MG [[place] 5-325] 1 tab PO Q4HR PRN 3 Days #18 tab 08/23/20 [Rx] Ondansetron Odt [Zofran ODT] 4 mg PO Q8HR PRN 08/23/20 [History] Tamsulosin [Flomax] 0.4 mg PO DAILY #14 cap 08/23/20 [Rx] Follow up Appointment(s)/Referral(s): Rudy Corrigan MD [STAFF PHYSICIAN] - 1 Week Corona Ware MD [Primary Care Provider] - 1-2 days Patient Instructions/Handouts: *Surgery [facility] - Cystoscopy Discharge Instructions, Cystoscopy (DC), Ureteral Stent Placement (DC) Activity/Diet/Wound Care/Special Instructions: -Increase fluid intake -It's normal to see some blood in the urine -Your stent was left on a string, and taped to your penis, it will be removed during your office visit
[2020-08-28] MEDS ORDERED: KETOROLAC 15 MG/ML 1 ML VIAL IVP STA (18:20)
[2020-08-28 21:03] VITALS: BP 126/77; PULSE 57; RESP 18; TEMP 97.4
--- NOTE | 2020-08-29 08:49 | FL ---
Fluoroscopy HISTORY: Stone removal and stent placement 23 seconds fluoroscopy time supplied to the referring clinician. 1 intraoperative C-arm images docum ent the procedure. See dictated report from urology.
== END 2020-08-28 21:50 | disposition home or self-care (01) ==
LOC: EC 21:49 → 6NMEDSUR 22:31
PROVIDERS: ADMIT Urology; ATTEND Urology
DX: N13.2 Hydronephrosis with renal and ureteral calculous obstruction (principal); Z79.899 Other long term (current) drug therapy; Z20.822 Contact with and (suspected) exposure to COVID-19; Z87.81 Personal history of (healed) traumatic fracture; Z90.49 Acquired absence of other specified parts of digestive tract
CPT/HCPCS: 52356; 96376; 96361; 96374; 96375 ×2; 99285; 36415; 80053; 82150; 83690; 85025; 81001; 87635; 74420; 74018; G0378 ×2; C2625; C1769; J2250; J2405; J0690; J2001; J3010; J1170 ×2; J1885 ×2; J2704; Q9967

== ENCOUNTER 2022-08-16 13:57 | Emergency (ER) | payer BC ==
[2022-08-16] MEDS ORDERED: SODIUM CHLORIDE 0.9% 1,000 ML IV STA (14:05)
[2022-08-16 14:08] VITALS: TEMP 97.3
--- NOTE | 2022-08-16 14:08 | ED ---
Neuro HPI - General Stated Complaint: Right side numbness Time Seen by Provider: 08/16/22 14:01 Source: patient, RN notes reviewed, old records reviewed Mode of arrival: EMS Limitations: no limitations - History of Present Illness Is the patient presenting with stroke symptoms?: No -: hour(s) Initial Comments: This is a 52-year-old male to the emergency department for evaluation patient has no significant medical history coming in for evaluation regards to numbness and tingling of his left arm left leg and spread into his right arm and right leg. Patient is anxious as he is feeling a history of stroke and concern for stroke. Patient is no travel history sick contacts no other complaints no recent illness patient takes no medications. No drugs or alcohol. Location: left arm, right arm, left leg, right leg History of same: Yes (Usually associated with migraine headache) Place: home Severity: mild Quality: numb, tingling Improves With: none Worsens With: none On Anticoagulants: No Context: gradual onset Associated Symptoms: denies other symptoms Treatments Prior to Arrival: none - Related Data Home Medications: Home Medications Medication Instructions Recorded Confirmed No Known Home Medications 08/16/22 08/16/22 Allergies/Adverse Reactions: Allergies Allergy/AdvReac Type Severity Reaction Status Date / Time meperidine [From Demerol] Allergy Nausea & Verified 08/16/22 15:30 Vomiting & Diarrhea Review of Systems ROS Statement: Those systems with pertinent positive or pertinent negative responses have been documented in the HPI. ROS Other: All systems not noted in ROS Statement are negative. General Exam Limitations: no limitations General appearance: alert, in no apparent distress Head exam: Present: atraumatic, normocephalic, normal inspection Eye exam: Present: normal appearance, PERRL, EOMI. Absent: scleral icterus, conjunctival injection, periorbital swelling ENT exam: Present: normal exam, mucous membranes moist Neck exam: Present: normal inspection. Absent: tenderness, meningismus, lymphadenopathy Respiratory exam: Present: normal lung sounds bilaterally. Absent: respiratory distress, wheezes, rales, rhonchi, stridor Cardiovascular Exam: Present: regular rate, normal rhythm, normal heart sounds. Absent: systolic murmur, diastolic murmur, rubs, gallop, clicks GI/Abdominal exam: Present: soft, normal bowel sounds. Absent: distended, tenderness, guarding, rebound, rigid Extremities exam: Present: normal inspection, full ROM, normal capillary refill. Absent: tenderness, pedal edema, joint swelling, calf tenderness Back exam: Present: normal inspection Neurological exam: Present: alert, oriented X3, CN II-XII intact Psychiatric exam: Present: normal affect, normal mood Skin exam: Present: warm, dry, intact, normal color. Absent: rash Stroke MDM - Lab Data Result diagrams: 08/16/22 14:15 08/16/22 14:15 Lab Results 08/16/22 08/16/22 08/16/22 Range/Units 14:15 14:15 14:15 WBC 5.0 (3.8-10.6) k/uL RBC 4.72 (4.30-5.90) m/uL Hgb 15.1 (13.0-17.5) gm/dL Hct 44.0 (39.0-53.0) % MCV 93.2 (80.0-100.0) fL MCH 32.0 (25.0-35.0) pg MCHC 34.3 (31.0-37.0) g/dL RDW 11.8 (11.5-15.5) % Plt Count 289 (150-450) k/uL MPV 7.5 Neutrophils % 47 % Lymphocytes % 39 % Monocytes % 8 % Eosinophils % 3 % Basophils % 1 % Neutrophils # 2.3 (1.3-7.7) k/uL Lymphocytes # 2.0 (1.0-4.8) k/uL Monocytes # 0.4 (0-1.0) k/uL Eosinophils # 0.2 (0-0.7) k/uL Basophils # 0.0 (0-0.2) k/uL PT 10.1 (9.0-12.0) sec INR 0.9 (<1.2) APTT 22.3 (22.0-30.0) sec Sodium 139 (137-145) mmol/L Potassium 4.0 (3.5-5.1) mmol/L Chloride 109 H (98-107) mmol/L Carbon Dioxide 21 L (22-30) mmol/L Anion Gap 9 mmol/L BUN 15 (9-20) mg/dL Creatinine 1.22 (0.66-1.25) mg/dL Est GFR (CKD-EPI)AfAm 78 (>60 ml/min/1.73 sqM) Est GFR (CKD-EPI)NonAf 68 (>60 ml/min/1.73 sqM) Glucose 91 (74-99) mg/dL Calcium 9.5 (8.4-10.2) mg/dL Total Bilirubin 1.1 (0.2-1.3) mg/dL AST 47 (17-59) U/L ALT 52 H (4-49) U/L Alkaline Phosphatase 100 (38-126) U/L Creatine Kinase 172 H (55-170) U/L Troponin I (0.000-0.034) ng/mL Total Protein 7.3 (6.3-8.2) g/dL Albumin 4.4 (3.5-5.0) g/dL 08/16/22 Range/Units 14:15 WBC (3.8-10.6) k/uL RBC (4.30-5.90) m/uL Hgb (13.0-17.5) gm/dL Hct (39.0-53.0) % MCV (80.0-100.0) fL MCH (25.0-35.0) pg MCHC (31.0-37.0) g/dL RDW (11.5-15.5) % Plt Count (150-450) k/uL MPV Neutrophils % % Lymphocytes % % Monocytes % % Eosinophils % % Basophils % % Neutrophils # (1.3-7.7) k/uL Lymphocytes # (1.0-4.8) k/uL Monocytes # (0-1.0) k/uL Eosinophils # (0-0.7) k/uL Basophils # (0-0.2) k/uL PT (9.0-12.0) sec INR (<1.2) APTT (22.0-30.0) sec Sodium (137-145) mmol/L Potassium (3.5-5.1) mmol/L Chloride (98-107) mmol/L Carbon Dioxide (22-30) mmol/L Anion Gap mmol/L BUN (9-20) mg/dL Creatinine (0.66-1.25) mg/dL Est GFR (CKD-EPI)AfAm (>60 ml/min/1.73 sqM) Est GFR (CKD-EPI)NonAf (>60 ml/min/1.73 sqM) Glucose (74-99) mg/dL Calcium (8.4-10.2) mg/dL Total Bilirubin (0.2-1.3) mg/dL AST (17-59) U/L ALT (4-49) U/L Alkaline Phosphatase (38-126) U/L Creatine Kinase (55-170) U/L Troponin I <0.012 (0.000-0.034) ng/mL Total Protein (6.3-8.2) g/dL Albumin (3.5-5.0) g/dL - NIH Stroke Scale 1a. Level of Consciousness: (0) alert 1b. LOC Questions: (0) answers correctly 1c. LOC Commands: (0) performs tasks correctly 2. Best Gaze: (0) normal 3. Visual: (0) no visual loss 4. Facial Palsy: (0) normal symmetrical movement 5a. Motor Arm Left: (0) no drift 5b. Motor Arm Right: (0) no drift 6a. Motor Leg Left: (0) no drift 6b. Motor Leg Right: (0) no drift 7. Limb Ataxia: (0) absent 8. Sensory: (0) normal 9. Best Language: (0) no aphasia 10. Dysarthria: (0) normal 11. Extinction/Inattention: (0) no abnormality - Medical Decision Making 52 male to the emergency room today. Patient presents today for evaluation of paresthesias bilateral increased anxiety and headache. Migraines he develops here in the ER patient feels improved and can be discharged home - Radiology Data Radiology results: report reviewed (Chest x-ray CT brain CT head neck negative for acute disease), image reviewed - EKG Data -: EKG Interpreted by Me (EKG is sinus 76 AL 185 QRS 98 QTc 402) Past Medical History Additional Past Medical History / Comment(s): Kindey stones, broken neck History of Any Multi-Drug Resistant Organisms: None Reported Past Surgical History: Appendectomy Additional Past Surgical History / Comment(s): Vasectomy, ERCP, Past Anesthesia/Blood Transfusion Reactions: No Reported Reaction Past Psychological History: No Psychological Hx Reported Smoking Status: Light tobacco smoker Past Alcohol Use History: Rare Past Drug Use History: None Reported Course Vital Signs 08/16/22 08/16/22 08/16/22 14:02 15:30 17:34 Temperature 97.3 F L Pulse Rate 80 69 80 Respiratory 26 H 18 18 Rate Blood Pressure 129/96 115/79 126/70 O2 Sat by Pulse 100 100 100 Oximetry - Reevaluation(s) Reevaluation #1: 08/16/22 15:44 Medical records reviewed Reevaluation #2: 08/16/22 15:44 Symptoms Are improved, does develop migraine headache Migraine headache currently resolved Reevaluation #3: 08/16/22 15:44 Patient informed results questions answered Reevaluation #4: 08/16/22 15:44 Was pt. sent in by a medical professional or institution? @ -no Did you speak to anyone other than the patient for history? @ -no Did you review nursing and triage notes? @ -agree Were old charts reviewed? @ -no Differential Diagnosis? @ -prior EKG interpreted by me (3pts min.)? @ -yes X-rays interpreted by me (1pt min.)? @ -no CT interpreted by me (1pt min.)? @ -no U/S interpreted by me (1pt. min.)? @ -no What testing was considered but not performed? (CT, X-rays, U/S, labs)? Why? @ -no What meds were considered but not given? Why? @ -no Did you discuss the management of the patient with other professionals? @ -no Did you reconcile home meds? @ -no Was smoking cessation discussed for >3mins.? @ -no Was critical care preformed (if so, how long)? @ -no Were there social determinants of health that impacted care today? How? (Homelessness, low income, unemployed, alcoholism, drug addiction, transport ation, low edu. Level, literacy, decrease access to med. care, group home, rehab)? @ -no Was there de-escalation of care discussed even if they declined? (Discuss DNR or withdrawal of care, Hospice)? @ -no What co-morbidities impacted this encounter? (DM, HTN, Smoking, COPD, CAD, Cancer, CVA, Hep., AIDS, mental health diagnosis, sleep apnea, morbid obesity)? @ -none Was patient admitted / discharged? @ -49 female who complained of neurological insult history of migraine migraine headaches no current headache on arrival headache did give all which returned to migraine headache and was treated patient felt better and can be discharged home Discharged Undiagnosed new problem with uncertain prognosis? @ -no Drug Therapy requiring intensive monitoring for toxicity (Heparin, Nitro, Insulin, Cardizem)? @ -no Were any procedures done? @ -no Diagnosis/symptom? @ -Acute on chronic migraine with neurological complaints and paresthesia Acute, or Chronic, or Acute on Chronic? @ -Acute Uncomplicated (without systemic symptoms) or Complicated (systemic symptoms)? @ -uncomplicated Side effects of treatment? @ -no Exacerbation, Progression, or Severe Exacerbation] @ -no Poses a threat to life or bodily function? @ -Yes if neurologically mediated, CVA Reevaluation #5: 08/16/22 16:47 Differential Headache: Migraine, tension, cluster, carbon monoxide, central venous thrombosis, pension karma temporal arteritis, acute closure glaucoma, intercranial hemorrhage, mastoiditis, sinusitis, head injury, this is not meant to be an all-inclusive list. Disposition Clinical Impression: Migraine headache, Paresthesia of hand, bilateral, Paresthesia of foot, bilateral Disposition: HOME SELF-CARE Condition: Good Instructions (If sedation given, give patient instructions): Acute Headache (ED) Is patient prescribed a controlled substance at d/c from ED?: No Referrals: None,Stated [Primary Care Provider] - 1-2 days Time of Disposition: 16:00
[2022-08-16 14:25] LABS: Basophils % (A) 1 %; Eosinophils # (A) 0.2 k/uL (0-0.7); Eosinophils % (A) 3 %; HGB 15.1 gm/dL (13.0-17.5); Lymphocytes % (A) 39 %; MCHC 34.3 g/dL (31.0-37.0); MCV 93.2 fL (80.0-100.0); Mean Platelet Volume 7.5; Monocytes # (A) 0.4 k/uL (0-1.0); Monocytes % (A) 8 %; Neutrophils # (A) 2.3 k/uL (1.3-7.7); Neutrophils % (A) 47 %; Platelet Count 289 k/uL (150-450); RBC 4.72 m/uL (4.30-5.90); RDW 11.8 % (11.5-15.5)
[2022-08-16 14:37] LABS: Albumin 4.4 g/dL (3.5-5.0); Calcium 9.5 mg/dL (8.4-10.2); Total Bilirubin 1.1 mg/dL (0.2-1.3); Total Protein 7.3 g/dL (6.3-8.2)
[2022-08-16 14:40] LABS: INR 0.9 (<1.2); Partial Thromboplastin Time 22.3 sec (22.0-30.0); Prothrombin Time 10.1 sec (9.0-12.0)
[2022-08-16 15:32] VITALS: RESP 18
[2022-08-16] MEDS ORDERED: PROCHLORPERAZINE INJ 10 MG/2 ML VIAL IVP STA (15:37)
[2022-08-16] MEDS ORDERED: diphenhydrAMINE 50 MG/ML 1 ML VIAL IVP STA (15:37)
[2022-08-16] MEDS ORDERED: KETOROLAC 15 MG/ML 1 ML VIAL IVP STA (15:37)
--- NOTE | 2022-08-16 15:57 | CT ---
EXAMINATION TYPE: CT brain wo con DATE OF EXAM: 08/16/2022 HISTORY: right side numbness CT DLP: 1126.5 mGycm. Automated Exposure Control for Dose Reduction was Utilized. TECHNIQUE: CT scan of the head is performed without contrast. COMPARISON: None. FINDINGS: There is no acute intracranial hemorrhage or midline shift identified. Ventricles and sul ci are within normal limits in size. Babin-white matter differentiation is maintained. The globes are intact and the visualized sinuses are clear. IMPRESSION: No acute intracranial hemorrhage or midline shift. Unremarkable study.
--- NOTE | 2022-08-16 16:17 | CT ---
EXAMINATION TYPE: CT angio head neck DATE OF EXAM: 08/16/2022 COMPARISON: CT brain HISTORY: 52-year-old male right side numbness TECHNIQUE: Contiguous axial scanning of the head and neck performed with IV Contrast, patient injecte d with 65 mL of Isovue 370. Coronal and sagittal MIP reconstructions performed. 3-D reconstructions g enerated on a dedicated independent workstation. CT DLP: 430.5 mGycm Automated exposure control for dose reduction was used. FINDINGS: NECK: Conventional arch was a branching anatomy. Dominant left vertebral artery. Right common and right internal carotid arteries are widely patent. Left common and left internal carotid arteries are widely patent. NASCET criteria was utilized. HEAD: Dominant left vertebral artery. Both vertebral and basilar arteries are patent as is the remainder of the posterior circulation. Bilateral internal carotid arteries and remainder of the anterior circulation is patent. No aneurysmal changes identified. IMPRESSION: 1. NECK: WIDELY PATENT CAROTID AND VERTEBRAL ARTERIES OF THE NECK. 2. HEAD: NO LARGE VESSEL INTRACRANIAL ARTERIAL OCCLUSION, SIGNIFICANT STENOSIS, OR ANEURYSMAL CHANGE IS SEEN.
--- NOTE | 2022-08-16 16:44 | XR ---
EXAMINATION TYPE: XR chest 1V portable DATE OF EXAM: 08/16/2022 4:23 PM COMPARISON: Chest radiographs from 01/27/2019 TECHNIQUE: XR chest 1V portable Frontal view of the chest. CLINICAL INDICATION:Male, 52 years old with history of cp; FINDINGS: Lungs/Pleura: Low lung volumes are present. There is no evidence of pleural effusion, focal consolida tion, or pneumothorax. Pulmonary vascularity: Unremarkable. Heart/mediastinum: Cardiomediastinal silhouette is unremarkable. Musculoskeletal: No acute osseous pathology. IMPRESSION: No acute cardiopulmonary disease/process.
[2022-08-16 17:35] VITALS: BP 126/70; PULSE 80
== END 2022-08-16 17:35 | disposition home or self-care (01) ==
LOC: EC 13:57
DX: G43.909 Migraine, unspecified, not intractable, without status migrainosus (principal); R20.2 Paresthesia of skin; F17.200 Nicotine dependence, unspecified, uncomplicated; Z88.5 Allergy status to narcotic agent
CPT/HCPCS: 36415; 93005; 80053; 82550; 84484; 85025; 85610; 85730; 71045; 70496; 70450; 70498; 99285; 96374; 96375 ×2; 96361 ×3; J1200; J0780; J1885; Q9967

== ENCOUNTER → 2023-10-31 | Outpatient (CLI) | payer BC ==
--- NOTE | 2023-10-31 13:24 | US ---
EXAMINATION TYPE: US pelvic limited DATE OF EXAM: 10/31/2023 COMPARISON: NONE CLINICAL INDICATION: Male, 53 years old with history of R19.00 INTRA ABD SWELLING MASS; LT Groin lump EXAMINATION TYPE: US pelvic limited TECHNIQUE: Multiple grayscale and color Doppler ultrasound images of the pelvis were obtained. FINDINGS: Prevoid bladder: 133.3ml Postvoid bladder: 0 Bladder not fully distended. Anechoic; jets not seen No abnormality identified within the pelvis. IMPRESSION: No ultrasound evidence for abnormality within the pelvis.
--- NOTE | 2023-10-31 13:26 | US ---
EXAMINATION TYPE: US groin LT DATE OF EXAM: 10/31/2023 COMPARISON: NONE CLINICAL INDICATION: Male, 53 years old with history of R19.00 Intra abd swelling mass; Lt groin lump TECHNIQUE: Multiple grayscale and color Doppler ultrasound images of the left groin were obtained. FINDINGS: Patient has left groin palpable x3 days There are two lymph nodes noted within the left groin. 1). 1.6 x 0.5 x 0.7cm 2). 1.9 x 0.8 x 0.8cm These demonstrate normal fatty hilum. Minimal cortical thickening of one of the lymph nodes. No organ ized fluid collection is identified. IMPRESSION: There are 2 mildly prominent left groin lymph nodes identified with one demonstrating mi nimal cortical thickening. These may be reactive versus other etiologies. Consider follow-up ultrasou nd in 3 months to assess for interval change.
--- NOTE | 2023-10-31 13:27 | US ---
EXAMINATION TYPE: US abdomen complete DATE OF EXAM: 10/31/2023 COMPARISON: NONE CLINICAL INDICATION: Male, 53 years old with history of R19.00 INTRA ABD SWELLING MASS; TECHNIQUE: Multiple sonographic images of the abdomen are obtained. FINDINGS: EXAM MEASUREMENTS: Liver Length: 15.7 cm Gallbladder Wall: 0.25 cm CBD: 0.20 cm Spleen: 11.4 x 10.7 x 3.7 cm Right Kidney: 10.3 x 5.4 x 4.6 cm Left Kidney: 10.8 x 5.5 cm MODEL BUILDER DISPLAY NOTES: Pancreas: Tail obscured by overlying bowel gas Liver: Increased echogenicity Gallbladder: No stones seen Evidence for sonographic Millan's sign: No CBD: wnl Spleen: wnl Right Kidney: wnl Left Kidney: wnl Upper IVC: wnl Abd Aorta: wnl The liver is homogenous with increased echotexture.. The intrahepatic portion of the IVC and proxima l abdominal aorta are within normal limits. There is no evidence of cholelithiasis. Common bile erika t is unremarkable. The visualized portions of the pancreas are homogenous. The spleen is unremarkab le. Kidneys are symmetric and free of hydronephrosis. No renal lesions are seen. IMPRESSION: 1. Hepatic steatosis. 2. No evidence for acute process.
== END | disposition home or self-care (01) ==
LOC: RADUSWWP 11:58
PROVIDERS: ATTEND Family Medicine
DX: K76.0 Fatty (change of) liver, not elsewhere classified (principal); N28.89 Other specified disorders of kidney and ureter; R19.00 Intra-abdominal and pelvic swelling, mass and lump, unspecified site
CPT/HCPCS: 76700; 76857

== ENCOUNTER 2023-11-15 20:07 | Emergency (ER) | payer BC ==
[2023-11-15] MEDS ORDERED: LORazepam 2 MG/ML INJ ONE (21:01)
[2023-11-15] MEDS ORDERED: SODIUM CHLORIDE 0.9% 1,000 ML BAG ONE (21:05)
--- NOTE | 2023-12-17 09:38 | XR ---
EXAMINATION TYPE: XR chest 1V DATE OF EXAM: 11/15/2023 COMPARISON: No comparison available on downtime PACS. INDICATION: Redness and weakness TECHNIQUE: Single frontal view of the chest is obtained. FINDINGS: The heart size is normal. The pulmonary vasculature is normal. The lungs are clear. IMPRESSION: 1. No acute pulmonary process. [facility] Juanjo Garcia, , 12/17/2023 9:36 AM
--- NOTE | 2023-12-23 09:59 | CT ---
EXAM: CT Head Without Intravenous Contrast CLINICAL HISTORY: Syncope, +LOC TECHNIQUE: Axial computed tomography images of the head/brain without intravenous contrast. CTDI is 49.2 mGy and DLP is 1161.4 mGy-cm. This CT exam was performed using one or more of the following dose reduction techniques: automated exposure control, adjustment of the mA and/or kV according to patient size, and/or use of iterative reconstruction technique. COMPARISON: No relevant prior studies available. FINDINGS: Brain:Unremarkable. No hemorrhage. No significant white matter disease. No edema. Ventricles:Unremarkable. No ventriculomegaly. Bones/joints:Unremarkable. No acute fracture. Soft tissues:No significant overlying soft tissue abnormality. No radiopaque foreign body. Sinuses: Minimal mucosal thickening involving the right maxillary sinus inferiorly. No traumatic effusions. Mastoid air cells:Unremarkable as visualized. No mastoid effusion. IMPRESSION: No acute intracranial process identified. Radiologist: Rosendo Ugalde MD Electronically Signed: 11/15/23 23:37 Study ready at 22:15 and initial results transmitted at 23:37 [facility]
== END 2023-11-16 00:42 | disposition home or self-care (01) ==
LOC: EC 20:07
CPT/HCPCS: 70450; 71045; 93005; 96361; 96374; 99285

== ENCOUNTER 2023-11-23 23:16 | Observation (INO) | payer BC ==
--- NOTE | 2023-11-23 23:40 | ED ---
Recheck HPI - General Chief Complaint: Dizziness Stated Complaint: Vision issues, nausea Time Seen by Provider: 11/23/23 23:31 Source: patient, RN notes reviewed, old records reviewed Mode of arrival: ambulatory Limitations: no limitations - History of Present Illness Initial Comments: This is a 53-year-old male to ER with near syncopal event difficulty with vision difficulty seeing, patient had a syncopal event versus anxiety attack 1 week ago here in this emergency department, patient has not been feeling well ever since. Patient has no medical history and takes no medications -: days(s) Symptoms Since Prior Visit: no new symptoms Associated Symptoms: none Treatments Prior to Arrival: other (0) - Related Data Previous Rx's Medication Instructions Recorded Topiramate [Topamax] See Rx Instructions .ROUTE 11/25/23 .COMPLEX 30 Days #106 tablet Allergies Allergy/AdvReac Type Severity Reaction Status Date / Time meperidine [From Demerol] Allergy Nausea & Verified 11/24/23 09:49 Vomiting & Diarrhea Review of Systems ROS Statement: Those systems with pertinent positive or pertinent negative responses have been documented in the HPI. ROS Other: All systems not noted in ROS Statement are negative. Past Medical History Additional Past Medical History / Comment(s): Kindey stones, broken neck History of Any Multi-Drug Resistant Organisms: None Reported Past Surgical History: Appendectomy Additional Past Surgical History / Comment(s): Vasectomy, ERCP, Past Anesthesia/Blood Transfusion Reactions: No Reported Reaction Past Psychological History: No Psychological Hx Reported Smoking Status: Light tobacco smoker Past Alcohol Use History: Rare Past Drug Use History: None Reported General Exam Limitations: no limitations General appearance: alert, in no apparent distress, anxious, in distress Head exam: Present: atraumatic, normocephalic, normal inspection Eye exam: Present: normal appearance, PERRL, EOMI. Absent: scleral icterus, conjunctival injection, periorbital swelling ENT exam: Present: normal exam, mucous membranes moist Neck exam: Present: normal inspection. Absent: tenderness, meningismus, lymphadenopathy Respiratory exam: Present: normal lung sounds bilaterally. Absent: respiratory distress, wheezes, rales, rhonchi, stridor Cardiovascular Exam: Present: regular rate, normal rhythm, normal heart sounds. Absent: systolic murmur, diastolic murmur, rubs, gallop, clicks GI/Abdominal exam: Present: soft, normal bowel sounds. Absent: distended, tenderness, guarding, rebound, rigid Extremities exam: Present: normal inspection, full ROM, normal capillary refill. Absent: tenderness, pedal edema, joint swelling, calf tenderness Back exam: Present: normal inspection Neurological exam: Present: alert, oriented X3, CN II-XII intact Psychiatric exam: Present: normal affect, normal mood Skin exam: Present: warm, dry, intact, normal color. Absent: rash Course Vital Signs 11/23/23 11/24/23 11/24/23 23:17 00:00 01:22 Temperature 97.7 F Pulse Rate 64 67 100 Respiratory 18 19 18 Rate Blood Pressure 165/97 132/88 134/89 O2 Sat by Pulse 99 99 100 Oximetry 11/24/23 11/24/23 11/24/23 02:00 03:00 04:00 Temperature Pulse Rate 66 73 62 Respiratory 18 18 18 Rate Blood Pressure 134/89 140/88 132/89 O2 Sat by Pulse 98 98 99 Oximetry 11/24/23 04:48 Temperature Pulse Rate 60 Respiratory 19 Rate Blood Pressure 138/85 O2 Sat by Pulse 98 Oximetry - Reevaluation(s) Reevaluation #1: 11/24/23 03:01 Medical records reviewed Reevaluation #2: 11/24/23 03:01 Patient's symptoms unchanged Reevaluation #3: 11/24/23 03:01 Patient informed of results and questions answered Reevaluation #4: Was pt. sent in by a medical professional or institution (, PA, [employer], urgent care, hospital, or alf...) When possible be specific @ -no Did you speak to anyone other than the patient for history (EMS, parent, family, police, friend...)? What history was obtained from this source @ -no Did you review nursing and triage notes (agree or disagree)? Why? @ -agree Are old charts reviewed (outside hosp., previous admission, EMS record, old EKG, old radiological studies, urgent care reports/EKG's, alf records)? Report findings @ -yes Differential Diagnosis (chest pain, altered mental status, abdominal pain women, abdominal pain men, vaginal bleeding, weakness, fever, dyspnea, syncope, headache, dizziness, GI bleed, back pain, seizure, CVA, palpatations, mental health, musculoskeletal)? @ -prior EKG interpreted by me (3pts min.). @ -yes X-rays interpreted by me (1pt min.). @ -yes negative for acute disease CT interpreted by me (1pt min.). @ -yes negative for acute disease U/S interpreted by me (1pt. min.). @ -no What testing was considered but not performed or refused? (CT, X-rays, U/S, labs)? Why? @ -none What meds were considered but not given or refused? Why? @ -none Did you discuss the management of the patient with other professionals (professionals i.e. , PA, [employer], lab, RT, psych nurse, health care social worker, export manager, teacher, welfare officer, machine adjuster leader case trim)? Give summary @ -no Was smoking cessation discussed for >3mins.? @ -no Was critical care preformed (if so, how long)? @ -[id number] Were there social determinants of health that impacted care today? How? (Homelessness, low income, unemployed, alcoholism, drug addiction, transportation, low edu. Level, literacy, decrease access to med. care, long-term, rehab)? @ -none Was there de-escalation of care discussed even if they declined (Discuss DNR or withdrawal of care, Hospice)? DNR status @ -no What co-morbidities impacted this encounter? (DM, HTN, Smoking, COPD, CAD, Cancer, CVA, ARF, Chemo, Hep., AIDS, mental health diagnosis, sleep apnea, morbid obesity)? @ -none Was patient admitted / discharged? Hospital course, mention meds given and route, prescriptions, significant lab abnormalities, going to OR and other pert inent info. @ - 53 male with syncopal versus near syncope. Patient will be admitted for cardiology evaluation multiple recent events of similar complaints in the past week and a half or so, patient has not been feeling well Admitted Undiagnosed new problem with uncertain prognosis? @ -no Drug Therapy requiring intensive monitoring for toxicity (Heparin, Nitro, Insulin, Cardizem)? @ -no Were any procedures done? @ -no Diagnosis/symptom? @ -Syncope versus seizure Acute, or Chronic, or Acute on Chronic? @ -Acute Uncomplicated (without systemic symptoms) or Complicated (systemic symptoms)? @ -Complicated Side effects of treatment? @ -no Exacerbation, Progression, or Severe Exacerbation? @ -exacerbation Poses a threat to life or bodily function? How? (Chest pain, [place], [place], pneumonia, PE, COPD, DKA, ARF, appy, cholecystitis, CVA, Diverticulitis, Homicidal, Suicidal, threat to staff... and all critical care pts) @ -yes syncope Reevaluation #5: Differential Syncope: Valvular disease, hypertrophic cardiomyopathy, pulmonary embolism, tamponade, tachycardia, bradycardia, TX, hypovolemia, hemorrhage, dissection, anemia, intracranial hemorrhage, seizure, hypoglycemia, carbon monoxide poisoning, this is not meant to be an all-inclusive list. - Consultations Consultation #1: Spoke with grisel who agrees to admit this patient Medical Decision Making - Medical Decision Making 53 male with syncopal versus near syncope. Patient will be admitted for cardiology evaluation multiple recent events of similar complaints in the past week and a half or so, patient has not been feeling well - Lab Data Result diagrams: 11/25/23 06:56 11/25/23 06:56 Lab Results 11/23/23 11/23/23 11/23/23 Range/Units 23:35 23:35 23:35 WBC 5.7 (3.8-10.6) k/uL RBC 4.54 (4.30-5.90) m/uL Hgb 14.8 (13.0-17.5) gm/dL Hct 43.0 (39.0-53.0) % MCV 94.7 (80.0-100.0) fL MCH 32.6 (25.0-35.0) pg MCHC 34.4 (31.0-37.0) g/dL RDW 12.1 (11.5-15.5) % Plt Count 315 (150-450) k/uL MPV 7.1 Neutrophils % 45 % Lymphocytes % 40 % Monocytes % 8 % Eosinophils % 5 % Basophils % 1 % Neutrophils # 2.5 (1.3-7.7) k/uL Lymphocytes # 2.2 (1.0-4.8) k/uL Monocytes # 0.5 (0-1.0) k/uL Eosinophils # 0.3 (0-0.7) k/uL Basophils # 0.1 (0-0.2) k/uL PT 10.4 (10.0-12.5) sec INR 0.9 (<1.2) APTT 25.4 (22.0-30.0) sec Sodium 139 (137-145) mmol/L Potassium 4.1 (3.5-5.1) mmol/L Chloride 106 (98-107) mmol/L Carbon Dioxide 23 (22-30) mmol/L Anion Gap 10 mmol/L BUN 13 (9-20) mg/dL Creatinine 0.91 (0.66-1.25) mg/dL Est GFR (CKD-EPI)AfAm >90 (>60 ml/min/1.73 sqM) Est GFR (CKD-EPI)NonAf >90 (>60 ml/min/1.73 sqM) Glucose 76 (74-99) mg/dL Plasma Lactic Acid Beka (0.7-2.0) mmol/L Calcium 9.6 (8.4-10.2) mg/dL Phosphorus 2.7 (2.5-4.5) mg/dL Magnesium 2.2 (1.6-2.3) mg/dL Total Bilirubin 0.7 (0.2-1.3) mg/dL AST 48 (17-59) U/L ALT 50 H (4-49) U/L Alkaline Phosphatase 99 (38-126) U/L Troponin I (0.000-0.034) ng/mL Total Protein 7.4 (6.3-8.2) g/dL Albumin 4.5 (3.5-5.0) g/dL 11/23/23 11/23/23 Range/Units 23:35 23:35 WBC (3.8-10.6) k/uL RBC (4.30-5.90) m/uL Hgb (13.0-17.5) gm/dL Hct (39.0-53.0) % MCV (80.0-100.0) fL MCH (25.0-35.0) pg MCHC (31.0-37.0) g/dL RDW (11.5-15.5) % Plt Count (150-450) k/uL MPV Neutrophils % % Lymphocytes % % Monocytes % % Eosinophils % % Basophils % % Neutrophils # (1.3-7.7) k/uL Lymphocytes # (1.0-4.8) k/uL Monocytes # (0-1.0) k/uL Eosinophils # (0-0.7) k/uL Basophils # (0-0.2) k/uL PT (10.0-12.5) sec INR (<1.2) APTT (22.0-30.0) sec Sodium (137-145) mmol/L Potassium (3.5-5.1) mmol/L Chloride (98-107) mmol/L Carbon Dioxide (22-30) mmol/L Anion Gap mmol/L BUN (9-20) mg/dL Creatinine (0.66-1.25) mg/dL Est GFR (CKD-EPI)AfAm (>60 ml/min/1.73 sqM) Est GFR (CKD-EPI)NonAf (>60 ml/min/1.73 sqM) Glucose (74-99) mg/dL Plasma Lactic Acid Beka 1.4 (0.7-2.0) mmol/L Calcium (8.4-10.2) mg/dL Phosphorus (2.5-4.5) mg/dL Magnesium (1.6-2.3) mg/dL Total Bilirubin (0.2-1.3) mg/dL AST (17-59) U/L ALT (4-49) U/L Alkaline Phosphatase (38-126) U/L Troponin I <0.012 (0.000-0.034) ng/mL Total Protein (6.3-8.2) g/dL Albumin (3.5-5.0) g/dL - EKG Data -: EKG Interpreted by Me (EKG sinus 69 HI 199 QRS 89 QTc 398) - Radiology Data Radiology results: report reviewed (T brain with angio head neck and chest negative for PE negative for acute disease), image reviewed Critical Care Time Critical Care Time: Yes Total Critical Care Time: 31 Disposition Clinical Impression: Syncope, Near syncope Disposition: ADMITTED IP TO THIS [facility] Condition: Stable Is patient prescribed a controlled substance at d/c from ED?: No Time of Disposition: 03:00
[2023-11-23 23:51] LABS: Basophils # (A) 0.1 k/uL (0-0.2); Basophils % (A) 1 %; Eosinophils # (A) 0.3 k/uL (0-0.7); Eosinophils % (A) 5 %; HGB 14.8 gm/dL (13.0-17.5); Lymphocytes # (A) 2.2 k/uL (1.0-4.8); Lymphocytes % (A) 40 %; MCH 32.6 pg (25.0-35.0); MCHC 34.4 g/dL (31.0-37.0); MCV 94.7 fL (80.0-100.0); Mean Platelet Volume 7.1; Monocytes # (A) 0.5 k/uL (0-1.0); Monocytes % (A) 8 %; Neutrophils # (A) 2.5 k/uL (1.3-7.7); Neutrophils % (A) 45 %; Platelet Count 315 k/uL (150-450); RBC 4.54 m/uL (4.30-5.90); RDW 12.1 % (11.5-15.5); WBC 5.7 k/uL (3.8-10.6)
[2023-11-23] MEDS: SODIUM CHLORIDE 0.9% 1,000 ML IV STA (23:52)
[2023-11-24 00:05] LABS: INR 0.9 (<1.2)
[2023-11-24 00:06] LABS: ALT 50 U/L (4-49); AST 48 U/L (17-59); African American GFR (CKD) >90 (>60 ml/min/1.73 sqM); Albumin 4.5 g/dL (3.5-5.0); Alkaline Phosphatase 99 U/L (38-126); Anion Gap 10 mmol/L; Blood Urea Nitrogen 13 mg/dL (9-20); Calcium 9.6 mg/dL (8.4-10.2); Carbon Dioxide 23 mmol/L (22-30); Chloride 106 mmol/L (98-107); Glucose 76 mg/dL (74-99); Magnesium 2.2 mg/dL (1.6-2.3); Non-African American GFR(CKD) >90 (>60 ml/min/1.73 sqM); Partial Thromboplastin Time 25.4 sec (22.0-30.0); Phosphorus 2.7 mg/dL (2.5-4.5); Potassium 4.1 mmol/L (3.5-5.1); Prothrombin Time 10.4 sec (10.0-12.5); Sodium 139 mmol/L (137-145); Total Bilirubin 0.7 mg/dL (0.2-1.3); Total Protein 7.4 g/dL (6.3-8.2)
[2023-11-24] MEDS ORDERED: RX INFO: IV CONTRAST WAS GIVEN 1 EACH MISC MISCELLANE PRN (00:19)
[2023-11-24] MEDS ORDERED: NALOXONE 0.4 MG/ML 1 ML VIAL IV PRN (02:59)
[2023-11-24] MEDS ORDERED: MORPHINE SULFATE 4 MG/ML SYRINGE IV PRN (02:59)
[2023-11-24] MEDS ORDERED: ONDANSETRON 4 MG/2 ML VIAL IVP PRN (02:59)
[2023-11-24] MEDS: SODIUM CHLORIDE 0.9% 1,000 ML IV SCH (03:55)
--- NOTE | 2023-11-24 09:22 | P.HPIM ---
History of Present Illness H&P Date: 11/24/23 History of Presenting Illness: Patient is a pleasant 53-year-old male with a past medical history of migraine headaches since the age of 4, kidney stones, and history of broken neck with reported fractured cervical vertebrae's healing without surgical intervention. Patient presented to the emergency department with a chief complaint of syncopal episode, visual changes, and memory deficits. Patient and his at bedside reports this began on 11/22/2023. Patient reports he was out to dinner with his and began feeling unwell, clammy, headache, dizziness, and lightheadedness. He reports he told his he needed to step outside and the next thing he remembers was being assisted up from the ground by 2 bystanders. Patient reports he was evaluated in the emergency department and told his blood pressure was slightly low and was provided with some fluids and discharged home. Patient reports going home and going on with his normal daily activities. 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 Patient reports he had right peripheral vision loss as everything was black and he was seeing black floaters/spots throughout his eyes. Patient reports he somehow went to the locker room and changed out of his uniform in the locker room but does not remember these events. He states he remembers calling his and the next thing you know she was there and he was changed out of his uniform. He does report mild headache, lightheadedness/wooziness, and continuing to see black spots/floaters. He reports the right peripheral vision loss has improved but he continues to have amnesia of these events with an approximated time loss of at least 30 minutes. Denies having any chest pain, palpitations, shortness of breath, tinnitus, difficulties with or changes in his speech, or experiencing any numbness/weakness/swelling in his extremities. Patient does report some paresthesias in bilateral fingers and states he does not know if this is due to feeling anxious over all of the events leading up to today, but this is not his normal baseline. Upon arrival to our facility, patient underwent evaluation in the emergency department. Vital signs upon arrival show blood pressure 165/97, heart rate 64, respiratory rate 18, temp 97.7 F, and SpO2 of 99% on room air. EKG was completed showing normal sinus rhythm at 69 bpm with no noted T wave or ST abnormalities showing no signs of acute ischemia upon personal review and interpretation. CT brain and CTA brain and chest were completed and currently pending results. Labs completed and reviewed. CBC was unremarkable. Coagulation profile normal findings. BMP unremarkable with the exception of blood sugar being 76 which is normal but on the lower side. Lactic acid was 1.4. Magnesium 2.2. Liver profile showing elevated AST of 50 otherwise normal findings. Troponin was negative at less than 0.012. Patient admitted under services with consultation to neurology. Review of systems: Pertinent positives and negatives as discussed in HPI, a complete review of sys tems was performed and all other systems are negative. Physical exam: Vital signs reviewed and stable. General: Nontoxic, no distress and appears stated age. Derm: Skin warm and dry, normal coloration for ethnicity. Head: Atraumatic, normocephalic and symmetric. Eyes: EOM's intact, no lid lag, and anicteric sclera Mouth: no lip lesions, mucus membranes moist Cardiovascular: regular rate and rhythm with normal S1S2, no murmur, positive posterior tibial pulses bilaterally, and cap refill < 2 seconds. Lungs: Respirations even, regular, and unlabored on room air. Lungs CTA bilaterally, no rhonchi, no rales, no wheezing, and no accessory muscle usage. Abdominal: soft, nontender to palpation, no guarding, no appreciable organomegaly Ext: ROM intact. No gross muscle atrophy, no edema, no contractures Neuro: Speech clear, face symmetrical and CN II-XII grossly intact with no noted focal neuro deficits Psych: Alert and oriented to person, place, time, and situation. Appropriate and pleasant affect. Assessment and Plan of Care: Syncopal episode with visual changes Transient amnesia History of migraines -Consult neurology -Follow-up on CT and CTA of head and CTA chest once radiology report is available. -MRI brain with and without contrast -EEG -Neuro checks every 4 hours and as needed -Fall precautions and provide pt with assistance as needed -Orthostatic vitals to be obtained -Telemetry monitoring. -Seizure precautions. Data and imaging reviewed: As stated above in HPI The patient is admitted with an anticipated greater than 2 midnight stay for evaluation of syncopal episode with visual changes and transient amnesia. CODE STATUS: Full code DVT prophylaxis: Lovenox Discussed with: Patient, patient's , RN, and neurologist Anticipated discharge date: Pending clinical course Anticipated discharge place: Home Patient was seen independently by Nurse Practitioner. This document was prepared using [employer] dictation software. Please allow for errors in pecan picker while rare they do occur. Alec Hanson NP rendered care for this patient independently, reviewed the findings and plan as documented in the note above. I did not physically speak with or examine the patient on this date. Past Medical History Additional Past Medical History / Comment(s): Kindey stones, broken neck History of Any Multi-Drug Resistant Organisms: None Reported Past Surgical History: Appendectomy Additional Past Surgical History / Comment(s): Vasectomy, ERCP Past Anesthesia/Blood Transfusion Reactions: No Reported Reaction Past Psychological History: No Psychological Hx Reported Smoking Status: Never smoker, Light tobacco smoker Past Alcohol Use History: None Reported, Rare Past Drug Use History: None Reported Medications and Allergies Home Medications Medication Instructions Recorded Confirmed Type No Known Home Medications 08/16/22 11/24/23 History Allergies Allergy/AdvReac Type Severity Reaction Status Date / Time meperidine [From Demerol] Allergy Nausea & Verified 11/24/23 09:49 Vomiting & Diarrhea Physical Exam Vitals: Vital Signs Temp Pulse Pulse Resp BP BP Pulse Ox 11/24/23 05:31 98.0 F 59 L 16 154/89 99 11/24/23 04:48 60 19 138/85 98 11/24/23 04:00 62 18 132/89 99 11/24/23 03:00 73 18 140/88 98 11/24/23 02:00 66 18 134/89 98 11/24/23 01:22 100 18 134/89 100 11/24/23 00:00 67 19 132/88 99 11/23/23 23:17 97.7 F 64 18 165/97 99 Intake and Output 11/23/23 11/24/23 11/24/23 22:59 06:59 14:59 Intake Total 240 Balance 240 Intake: Oral 240 Other: # Voids 1 Weight 95.254 kg Results CBC & Chem 7: 11/23/23 23:35 11/23/23 23:35 Labs: Abnormal Lab Results - Last 24 Hours (Table) 11/23/23 Range/Units 23:35 ALT 50 H (4-49) U/L Thrombosis Risk Factor Assmnt - Choose All That Apply Any of the Below Risk Factors Present?: Yes Each Factor Represents 1 point: Age 41-60 years, Obesity (BMI >25) Other Risk Factors: No Other congenital or acquired thrombophilia - If yes, enter type in comment: No Thrombosis Risk Factor Assessment Total Risk Factor Score: 2 Thrombosis Risk Factor Assessment Level: Low Risk
--- NOTE | 2023-11-24 12:37 | P.CNNES ---
History of Present Illness Consult date: 11/24/23 Requesting physician: Alec Hanson Reason for Consult: syncope, visual changes, transient amnesia History of Present Illness: This is a 53-year-old gentleman with history of migraine who presents emergency department after near syncopal to syncopal episode with visual changes and confusion. is at bedside who provides some of the history. It seems last night patient went to at 3 PM and then the got a call around 11 PM for her to come and pick him up since she was not feeling well. He stated that he was having some visual changes in which she is seeing black spots in his vision is blurry and could not make out things I did not tell what is going on. Not read things off the computer and had a difficulty time. He changed his outfit from there work dress code into the causal but does not remember doing that. When the brought him to the hospital and he was given a pen he did not he did not know what to do with it or right. Patient also had an episode a week ago, at 5:30 AM he woke up not feeling right and around 7 PM they went out for dinner he almost passed out the thinks and she does not know if she completely passed out. To be assisted by bystanders in which they called him. He does not recall the episode. He denies any urinary or bowel incontinence or tongue bite. No jerking of extremity. Does not recall having his typical migraine. Denies any headache that he recalls. It seems that his blood pressure has been labile. Because blood pressure was low and he is also present to the hospital on the examined and he was discharged. Currently feels back to baseline. Patient states he has a history of migraines since age of 54 years old he stated is typical as he has a headache throughout it is a throbbing then he will have numbness that starts in the right hand send up to go to the tongue and then you would have numbness over the left upper extremity. He will have photophobia and phonophobia nausea vomiting then he will go to bed he will take Excedrin and just go to bed sleep at out. He stated that he was eval by neurologist when he was a child and was told he had migraines. Besides Excedrin is not on any other medication. He has not followed up or been evaluated by neurologist ever since and as an adult. Headache can last for hours to the rest of the day. He used to have only 2 headaches per year but it seems that its become more frequent and controlled a year ago he had an episode where he was confused and not his typical migraine. He does have family history of migraine. He does not have any history of seizure. 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 Some of the work-up during this hospital visit consisted of: Static vitals is negative On presentation his initial blood pressure was 165/97. He is afebrile. CBC with differential is unremarkable Chemistry panel is ALT is 50 otherwise rest of the chemistry panel is unremark able Plasma lactic acid venous 1.4. CT head is I do not see any report but I have personally reviewed it and I do not see any acute or subacute ischemia and I do not appreciate any bleed. Review of Systems The positive and negative as per HPI. Past Medical History Additional Past Medical History / Comment(s): Kindey stones, broken neck History of Any Multi-Drug Resistant Organisms: None Reported Past Surgical History: Appendectomy Additional Past Surgical History / Comment(s): Vasectomy, ERCP Past Anesthesia/Blood Transfusion Reactions: No Reported Reaction Past Psychological History: No Psychological Hx Reported Smoking Status: Never smoker, Light tobacco smoker Past Alcohol Use History: None Reported, Rare Past Drug Use History: None Reported Medications and Allergies Home Medications Medication Instructions Recorded Confirmed Type No Known Home Medications 08/16/22 11/24/23 History Allergies Allergy/AdvReac Type Severity Reaction Status Date / Time meperidine [From Demerol] Allergy Nausea & Verified 11/24/23 09:49 Vomiting & Diarrhea Physical Examination - Vital Signs Vital Signs: Vital Signs Temp Pulse Pulse Pulse Pulse Pulse Resp 11/24/23 11:57 11/24/23 10:27 65 68 60 11/24/23 07:00 98.2 F 59 L 16 11/24/23 05:31 98.0 F 59 L 16 11/24/23 04:48 60 19 11/24/23 04:00 62 18 11/24/23 03:00 73 18 11/24/23 02:00 66 18 11/24/23 01:22 100 18 11/24/23 00:00 67 19 11/23/23 23:17 97.7 F 64 18 BP BP BP BP BP Pulse Ox 11/24/23 11:57 97 11/24/23 10:27 138/82 127/83 135/86 11/24/23 07:00 131/84 100 11/24/23 05:31 154/89 99 11/24/23 04:48 138/85 98 11/24/23 04:00 132/89 99 11/24/23 03:00 140/88 98 11/24/23 02:00 134/89 98 11/24/23 01:22 134/89 100 11/24/23 00:00 132/88 99 11/23/23 23:17 165/97 99 Intake and Output 11/23/23 11/24/23 11/24/23 22:59 06:59 14:59 Intake Total 240 Balance 240 Intake: Oral 240 Other: # Voids 1 Weight 95.254 kg GENERAL: The patient is lying in bed and is not in acute distress. NEUROLOGICAL: Higher mental function: The patient is awake, alert, oriented to self, place and time. Patient is following commands. No aphasia and no neglect. Cranial nerves: The pupils are round, equal and reactive to light and accommodation. Visual marr are full to confrontation throughout. Extraocular movement is intact no nystagmus is noted. Facial sensation is normal to touch throughout. The facial strength is normal throughout. Hearing is normal bilaterally to hand rub. Tongue is midline and moved [id number] without any difficulty. No dysarthria is noted. Shoulder shrug is normal bilaterally. Motor: The strength is 5 over 5 throughout. Normal tone and bulk. Cerebellum: Normal finger to nose heel to lombardi bilaterally. Sensation: Sensation is normal to touch throughout. Reflexes (right/left): 2+ throughout. Plantars are downgoing bilaterally. Results - Laboratory Findings CBC and BMP: 11/23/23 23:35 11/23/23 23:35 Abnormal Lab Findings: Abnormal Labs 11/23/23 23:35 ALT 50 H Assessment and Plan Assessment: This is a 53-year-old gentleman with history of migraine who presents because of visual disturbance, amnesia with near syncopal to syncopal episode. A weeks ago he had episode of confusion and these are not his typical migraine. A year ago he had episode of confusion. Near to completed syncope: I am concerned about possible seizure (possible foc al). Cannot rule out complicated migraine but I feel more concern for seizure. History of migraines since the age of 54 years old. Unsure if some of his episode in the past were seizure-like episodes were described as migraine Family history of migraine. Plan: MRI of the brain with and without was ordered and is pending I ordered routine EEG. EEG is normal recommend a sleep deprived EEG or prolonged EEG as an outpatient to capture his episodes I notified patient and his about starting him on Topamax which helps both with seizures as well as migraine but he declined and wants to hold off and will readdress tomorrow. Notified him about the side effects of medication. Seizure precautions seizure pads Notified the patient that per the [place] DMV if patient has seizures to avoid driving for 6 months until seizure-free, avoid heights, avoid swimming consider or using heavy machinery. Upon discharge recommend the patient to follow-up with a neurologist as an outpatient within 1 to 2 weeks Will defer the rest of the medical management to primary team Discussed with the patient and his and primary team Thank you for the consultation Time with Patient: Greater than 30
[2023-11-24] MEDS: SODIUM CHLORIDE 0.9% 1,000 ML IV ONE (13:10)
[2023-11-24] MEDS: LORazepam 2 MG/ML INJ IV STA (14:57)
--- NOTE | 2023-11-24 16:28 | MR ---
EXAMINATION TYPE: MR brain wo/w con DATE OF EXAM: 11/24/2023 4:18 PM CLINICAL INDICATION: Male, 53 years old with history of syncope, visual changes, migraines, parasthes ias; PHH, COMPARISON: CT brain 11/24/2023 TECHNIQUE: Multi planar, multi sequence imaging was performed through the brain including: T1, T2, In version recovery, susceptibility weighted imaging and gradient echo imaging and Diffusion weighted im aging. The patient was then given intravenous contrast and multi planar, T1 fat-saturation images wer e obtained. IV Contrast: cc 8 cc Gadavist FINDINGS: The carney-white junctions, ventricular system, basal cisterns appear unremarkable. Diffusion-weighted imaging shows no evidence of restricted diffusion to suggest acute/subacute infarct. Intracranial ar terial flow voids are maintained. Midline structures show no abnormality. Scattered foci of high T2 s ignal intensity are seen within the periventricular white matter. The susceptibility weighted images do not reveal any evidence for micro-hemorrhage. After administration of gadolinium, no abnormal enha ncement is seen. The bone marrow signal is within normal limits. Paranasal sinuses and mastoid air cells: Mucosal thickening of the right maxillary sinus. Visualized orbits: Orbital contents are intact. IMPRESSION: 1. No evidence of intracranial mass, acute/subacute infarct, or abnormal enhancement. 2. Mild right maxillary paranasal sinus disease.
[2023-11-25 02:26] VITALS: RESP 16
[2023-11-25 07:32] VITALS: BP 122/78; PULSE 64; TEMP 97.7
[2023-11-25] MEDS: ENOXAPARIN 40 MG/0.4 ML SYRINGE SQ SCH (09:58)
[2023-11-25] MEDS: ASPIRIN-ACET-CAFF 250-250-65MG 1 EACH TAB PO PRN (10:08)
--- NOTE | 2023-11-25 10:15 | EEG ---
ELECTROENCEPHALOGRAM REPORT CLINICAL HISTORY: This is a 53-year-old gentleman who presented to the emergency department because of syncopal episode. The video EEG is obtained to evaluate for seizure epileptiform activity. RELEVANT MEDICATIONS: The patient is not on any antiseizure medications. EEG TYPE: A routine 21-channel EEG with video using the 10/20 electrode placement system. DESCRIPTION: Wakefulness and drowsiness are obtained. During awake state, the posterior-dominant rhythm consists of [id number]-an-[id number] voltage of 9.5 to 10.5 Hz activity that is well modulated, well sustained. There is no physiological stage 2 sleep architecture. There is no focal slowing. INTERICTAL AND ICTAL: None. ACTIVATION PROCEDURE: Photic stimulation and hyperventilation were not performed. CLINICAL INTERPRETATION: This is a normal routine EEG during awake and drowsy states. There is no focal slowing, epileptiform discharges, or seizure on the EEG. A normal routine EEG. There is no abnormal underlying epilepsy. Clinical correlation is recommended. KAYLEN / CHRISTAN: [id number] /
[2023-11-25 10:43] LABS: Basophils # (A) 0.05 X 10*3/uL (0.00-0.10); Basophils % (A) 0.9 %; Eosinophils # (A) 0.28 X 10*3/uL (0.04-0.35); Eosinophils % (A) 4.8 %; HCT 42.7 % (39.6-50.0); HGB 14.5 g/dL (13.0-17.0); Lymphocytes # (A) 2.43 X 10*3/uL (0.90-5.00); Lymphocytes % (A) 41.8 %; MCH 32.2 pg (27.0-32.0); MCV 94.7 FL (80.0-97.0); Monocytes # (A) 0.63 X 10*3/uL (0.20-1.00); Monocytes % (A) 10.8 %; NRBC Per 100 WBC 0 X 10*3/uL (0.00-0.01); Neutrophils # (A) 2.39 X 10*3/uL (1.80-7.70); Neutrophils % (A) 41.2 %; Platelet Count 279 X 10*3/uL (140-440); RBC 4.51 X 10*6/uL (4.40-5.60); RDW 12.2 % (11.5-14.5); WBC 5.81 X 10*3/uL (4.50-10.00)
[2023-11-25 10:50] LABS: ALT 44 U/L (10-49); AST 34 U/L (14-35); Albumin 4.1 g/dL (3.8-4.9); Albumin/Globulin Ratio 1.95 Ratio (1.60-3.17); Alkaline Phosphatase 92 U/L (41-126); BUN/Creat Ratio 11.56 Ratio (12.00-20.00); Blood Urea Nitrogen 10.4 mg/dL (9.0-27.0); Carbon Dioxide 21.9 mmol/L (21.6-31.8); Chloride 108 mmol/L (96-109); Globulin 2.1 g/dL (1.6-3.3); Glucose 89 mg/dL (70-110); Phosphorus 3.4 mg/dL (2.4-5.1); Potassium 4.2 mmol/L (3.5-5.5); Sodium 141 mmol/L (135-145); Total Bilirubin 0.9 mg/dL (0.3-1.2); Total Protein 6.2 g/dL (6.2-8.2)
--- NOTE | 2023-11-25 11:40 | P.DS ---
Providers Date of admission: 11/24/23 02:59 Expected date of discharge: 11/25/23 Attending physician: Irina Giron MD Consults: 11/24/23 09:45 Consult Physician Routine Consulting Provider: Chary Wells Consult Reason/Comments: syncope, visual changes, transient amnesia Do you want consulting provider notified?: Yes Primary care physician: Stated None Hospital Course: Discharge Diagnosis: Syncopal episode with visual changes Transient amnesia History of migraines Hospital Course: Patient is a pleasant 53-year-old male with a past medical history of migraine headaches since the age of 4, kidney stones, and history of broken neck with reported fractured cervical vertebrae's healing without surgical intervention. Patient presented to the emergency department with a chief complaint of syncopal episode, visual changes, and memory deficits. Patient and his at bedside reports this began on 11/22/2023. Patient reports he was out to dinner with his and began feeling unwell, clammy, headache, dizziness, and lightheadedness. He reports he told his he needed to step outside and the next thing he remembers was being assisted up from the ground by 2 bystanders. Patient reports he was evaluated in the emergency department and told his blood pressure was slightly low and was provided with some fluids and discharged home. Patient reports going home and going on with his normal daily activities. 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 Patient reports he had right peripheral vision loss as everything was black and he was seeing black floaters/spots throughout his eyes. Patient reports he somehow went to the locker room and changed out of his uniform in the locker room but does not remember these events. He states he remembers calling his and the next thing you know she was there and he was changed out of his uniform. He does report mild headache, lightheadedness/wooziness, and continuing to see black spots/floaters. He reports the right peripheral vision loss has improved but he continues to have amnesia of these events with an approximated time loss of at least 30 minutes. Denies having any chest pain, palpitations, shortness of breath, tinnitus, difficulties with or changes in his speech, or experiencing any numbness/weakness/swelling in his extremities. Patient does report some paresthesias in bilateral fingers and states he does not know if this is due to feeling anxious over all of the events leading up to today, but this is not his normal baseline. Upon arrival to our facility, patient underwent evaluation in the emergency department. Vital signs upon arrival show blood pressure 165/97, heart rate 64, respiratory rate 18, temp 97.7 F, and SpO2 of 99% on room air. EKG was completed showing normal sinus rhythm at 69 bpm with no noted T wave or ST abnormalities showing no signs of acute ischemia upon personal review and interpretation. CT brain and CTA brain and chest were completed and currently pending results. Labs completed and reviewed. CBC was unremarkable. Coagulation profile normal findings. BMP unremarkable with the exception of blood sugar being 76 which is normal but on the lower side. Lactic acid was 1.4. Magnesium 2.2. Liver profile showing elevated AST of 50 otherwise normal findings. Troponin was negative at less than 0.012. Patient admitted under services with consultation to neurology. He reports improvement in visual changes. He underwent EEG showing normal routine EEG with no focal slowing, epileptiform discharges or seizure activity reported. MRI brain completed negative for acute intercranial process showing mild right maxillary paranasal sinus disease. Patient free from sinus congestion, pain, or complaints. Neurology evaluated stating concerns for underlying seizure disorder recommending patient be placed on Topamax. Discussed recommendations with patient patient in agreement to take medication. He is cleared from neur ology perspective for discharge and is medically stable for discharge at this time. Patient to follow-up outpatient with PCP in 1 to 2 days and with neurologist in 1 to 2 weeks. Physical exam: Vital signs reviewed and stable. General: Nontoxic, no distress and appears stated age. Derm: Skin warm and dry, normal coloration for ethnicity. Head: Atraumatic, normocephalic and symmetric. Eyes: EOM's intact, no lid lag, and anicteric sclera Mouth: no lip lesions, mucus membranes moist Cardiovascular: regular rate and rhythm with normal S1S2, no murmur, positive posterior tibial pulses bilaterally, and cap refill < 2 seconds. Lungs: Respirations even, regular, and unlabored on room air. Lungs CTA bilaterally, no rhonchi, no rales, no wheezing, and no accessory muscle usage. Abdominal: soft, nontender to palpation, no guarding, no appreciable organomegaly Ext: ROM intact. No gross muscle atrophy, no edema, no contractures Neuro: Speech clear, face symmetrical and CN II-XII grossly intact with no noted focal neuro deficits Psych: Alert and oriented to person, place, time, and situation. Appropriate and pleasant affect. A total of 38 minutes of time were spent preparing this complex discharge summary. Pt was discharged on 11/25/2023 at 11:38 AM. Patient was seen independently by Nurse Practitioner. This document was prepared using [employer] dictation software. Please allow for errors in carbide tool die maker while rare they do occur. I reviewed the documentation as provided by the GOMEZ above, who is the original author of this note. I agree with the documented assessment and plan, with the following changes: none Patient Condition at Discharge: Stable Plan - Discharge Summary Discharge Rx Participant: No New Discharge Prescriptions: New Topiramate [Topamax] See Rx Instructions .ROUTE .COMPLEX 30 Days #106 tablet Discharge Medication List Topiramate [Topamax] See Rx Instructions .ROUTE .COMPLEX 30 Days #106 tablet 11/25/23 [Rx] Follow up Appointment(s)/Referral(s): Ameya Perez MD [REFERRING] - 1 Week Salbador Rodas MD [REFERRING] - 1-2 Days (Please call residency clinic to schedule first available appointment for follow up and to establish care with PCP. ) Dharmesh Reno MD [STAFF PHYSICIAN] - 1-2 Days (Need to call and schedule appointment with opthalmologist to evaluate for visual changes. ) Patient Instructions/Handouts: Migraine Headache (GEN), Syncope (DC), Visual Floaters (GEN), Transient Global Amnesia (GEN) Activity/Diet/Wound Care/Special Instructions: Activity: As tolerated. Take breaks as needed. Diet: Heart healthy and carb consistent diet. Avoid salts, or foods with hidden salts such as canned or boxed foods and frozen dinners. Extra salt makes your heart w ork harder and traps the fluid in your body for longer. Special Instructions: Take all of your medications as directed and remember to keep all of your doctor's appointments and follow-up as needed. As discussed with you by neurologist, it is suspected that you have an underlying seizure disorder and were recommended to start Topamax. It is highly recommended you follow-up outpatient with a neurologist. [place] state law states no driving until seizure/syncopal episode free for 6 months. It is also important to avoid climbing ladders, operating dangerous or heavy machinery or unsupervised swimming until seizure/syncopal episode free for 6 months. Thank you for allowing us to participate in your care, it was truly a pleasure having you for our patient!!! Discharge/Stand Alone Forms: Work/School Release Discharge Disposition: HOME SELF-CARE
--- NOTE | 2023-11-25 13:29 | P.PN ---
Subjective Progress Note Date: 11/25/23 I am following up with the patient and feels he is doing drastically better today compared to initial presentation. Denies any further new neurological issues. Objective - Vital Signs Vital signs: Vital Signs Temp 97.7 F 11/25/23 07:05 Pulse 64 11/25/23 07:05 Resp 16 11/25/23 07:05 BP 122/78 11/25/23 07:05 Pulse Ox 96 11/25/23 08:41 FiO2 Intake & Output 11/24/23 11/25/23 11/25/23 18:59 06:59 18:59 Intake Total 1897 118 Balance 1897 118 Intake: Intake, IV Titration 1779 Amount Sodium Chloride 0.9% 1, 780 000 ml @ 130 mls/hr IV . Q7H42M [facility] Rx#:[id number] Sodium Chloride 0.9% 1, 999 000 ml @ 999 mls/hr IV . Q1H1M [facility] Rx#:[id number] Oral 118 118 Other: # Voids 2 - Exam GENERAL: The patient is lying in bed and is not in acute distress. NEUROLOGICAL: Higher mental function: The patient is awake, alert, oriented to self, place and time. Patient is following commands. No aphasia and no neglect. Cranial nerves: The pupils are round, equal and reactive to light and accomm odation. Visual marr are full to confrontation throughout. Extraocular movement is intact no nystagmus is noted. Facial sensation is normal to touch throughout. The facial strength is normal throughout. Hearing is normal bilaterally to hand rub. Tongue is midline and moved [id number] without any difficulty. No dysarthria is noted. Shoulder shrug is normal bilaterally. Motor: The strength is 5 over 5 throughout. Normal tone and bulk. Cerebellum: Normal finger to nose heel to lombardi bilaterally. Sensation: Sensation is normal to touch throughout. Reflexes (right/left): 2+ throughout. Plantars are downgoing bilaterally. Some of the work-up during this hospital visit consisted of: Static vitals is negative On presentation his initial blood pressure was 165/97. He is afebrile. CBC with differential is unremarkable Chemistry panel is ALT is 50 otherwise rest of the chemistry panel is unremarkable Plasma lactic acid venous 1.4. CT head is I do not see any report but I have personally reviewed it and I do not see any acute or subacute ischemia and I do not appreciate any bleed. Routine EEG: Is normal. MRI Brain w/ and w/o: No evidence of intracranial mass, acute/subacute infarct or abnormal enhancement. Mild right maxillary paranasal sinus disease - Labs CBC & Chem 7: 11/25/23 06:56 11/25/23 06:56 Labs: Abnormal Lab Results - Last 24 Hours (Table) 11/25/23 11/25/23 Range/Units 06:56 06:56 MCH 32.2 H (27.0-32.0) pg BUN/Creatinine Ratio 11.56 L (12.00-20.00) Ratio Assessment and Plan Assessment: This is a 53-year-old gentleman with history of migraine who presents because of visual disturbance, amnesia with near syncopal to syncopal episode. A weeks ago he had episode of confusion and these are not his typical migraine. A year ago he had episode of confusion. Near to completed syncope: I am concerned about possible seizure (possible focal). Cannot rule out complicated migraine but I feel more concern for seizure. EEG is normal and MRI Brain is unremarkable for acute/subacute process or mass. History of migraines since the age of 54 years old. Unsure if some of his episode in the past were seizure-like episodes were described as migraine Family history of migraine. Plan: Recommend a sleep deprived EEG or prolonged EEG as an outpatient to capture his episodes. I notified patient and his about starting him on Topamax which helps both with seizures as well as migraine but he declined today and will have it addressed as outpatient. Seizure precautions seizure pads Notified the patient that per the [place] DMV if patient has seizures to avoid driving for 6 months until seizure-free, avoid heights, avoid swimming consider or using heavy machinery. Upon discharge recommend the patient to follow-up with a neurologist as an outpatient within 1 to 2 weeks Will defer the rest of the medical management to primary team ADDENDUM: The primary notified me that he later accepted to be on Topamax so start 50mg bid and after 1 week go up to 100mg bid. He and his were notified of side- effects of medication. Discussed with the patient and his and primary team There is no further neurological work-up. Time with Patient: Less than 30
--- NOTE | 2024-01-12 09:52 | CT ---
EXAM: CT Head Without Intravenous Contrast CLINICAL HISTORY: headache, dizziness, and vision changes. TECHNIQUE: Axial computed tomography images of the head/brain without intravenous contrast. CTDI is 49.1 mGy and DLP is 1164 mGy-cm. This CT exam was performed using one or more of the following dose reduction techniques: automated exposure control, adjustment of the mA and/or kV according to patient size, and/or use of iterative reconstruction technique. COMPARISON: No relevant prior studies available. FINDINGS: Brain:No hemorrhage or mass effect. Ventricles:No hydrocephalus. Bones/joints:Unremarkable. Soft tissues:Unremarkable. Sinuses:Right maxillary sinus air-fluid level, correlate for sinusitis. Mastoid air cells:Clear. Orbits are intact. IMPRESSION: Right maxillary sinus air-fluid level, correlate for sinusitis. EXAM: CT Angiography Head With Intravenous Contrast CLINICAL HISTORY: headache, dizziness, and vision changes. TECHNIQUE: Axial computed tomographic angiography images of the head with intravenous contrast. CTDI is 0 mGy and DLP is 0 mGy-cm. This CT exam was performed using one or more of the following dose reduction techniques: automated exposure control, adjustment of the mA and/or kV according to patient size, and/or use of iterative reconstruction technique. MIP reconstructed images were created and reviewed. COMPARISON: No relevant prior studies available. FINDINGS: Right internal carotid artery:No significant stenosis. No aneurysm. Right anterior cerebral artery:No significant stenosis. No aneurysm. Right middle cerebral artery:No significant stenosis. No aneurysm. Right posterior cerebral artery:No significant stenosis. No aneurysm. Right vertebral artery:Unremarkable. Left internal carotid artery:No significant stenosis. No aneurysm. Left anterior cerebral artery:No significant stenosis. No aneurysm. Left middle cerebral artery:No significant stenosis. No aneurysm. Left posterior cerebral artery:No significant stenosis. No aneurysm. Left vertebral artery:Unremarkable. Basilar artery:No significant stenosis. No aneurysm. IMPRESSION: No significant stenosis. EXAM: CT Angiography Neck With Intravenous Contrast CLINICAL HISTORY: headache, dizziness, and vision changes. TECHNIQUE: Routine carotid CT angiography protocol was performed with intravenous contrast. NASCET criteria using the distal ICAs for comparison were used for evaluation of stenoses. CTDI is 39.3 mGy and DLP is 748.6 mGy-cm. This CT exam was performed using one or more of the following dose reduction techniques: automated exposure control, adjustment of the mA and/or kV according to patient size, and/or use of iterative reconstruction technique. MIP reconstructed images were created and reviewed. COMPARISON: None. FINDINGS: VASCULATURE: Right common carotid artery:No significant stenosis. No dissection. Right internal carotid artery:No significant stenosis. No dissection. Right vertebral artery:No significant stenosis. No dissection. Left common carotid artery:No significant stenosis. No dissection. Left internal carotid artery:No significant stenosis. No dissection. Left vertebral artery:No significant stenosis. No dissection. NECK: Lung apices:Clear. CAROTID STENOSIS REFERENCE USING NASCET CRITERIA: %ICA stenosis = (1 - narrowest ICA diameter/diameter of distal cervical ICA) x 100. Mild - <50%stenosis. Moderate - 50-69%stenosis. Severe - 70-94%stenosis. Near occlusion - 95-99%stenosis. Occluded - 100%stenosis. IMPRESSION: No significant stenosis. EXAM: CT Angiography Chest With Intravenous Contrast CLINICAL HISTORY: headache, dizziness, and vision changes. TECHNIQUE: Axial computed tomographic angiography images of the chest with intravenous contrast. CTDI is 14.9 mGy and DLP is 639 mGy-cm. This CT exam was performed using one or more of the following dose reduction techniques: automated exposure control, adjustment of the mA and/or kV according to patient size, and/or use of iterative reconstruction technique. MIP reconstructed images were created and reviewed. COMPARISON: No relevant prior studies available. FINDINGS: Pulmonary arteries: Low contrast opacification of the pulmonary arteries limiting evaluation. Cannot definitively evaluate for pulmonary embolism on the study. Aorta:No thoracic aortic aneurysm. Lungs:No mass. No consolidation. Pleural space:No pneumothorax. No effusion. Heart:No cardiomegaly. No pericardial effusion. Bones/joints:No acute fracture or dislocation. Soft tissues:Unremarkable. Lymph nodes:No enlarged lymph nodes. IMPRESSION: Low contrast opacification of the pulmonary arteries limiting evaluation. Cannot definitively evaluate for pulmonary embolism on the study. Radiologist: Dragan Santiago MD Electronically Signed: 11/24/23 01:51 Study first marked ready to read at 01:18, study last marked ready to read at 01:18, initial results transmitted at 01:5 MTDD
== END 2023-11-25 13:30 | disposition home or self-care (01) ==
LOC: EC 23:16 → 6NMEDSUR 11-24 02:59
PROVIDERS: ADMIT Internal Medicine; ATTEND Internal Medicine
DX: R55 Syncope and collapse (principal); R41.3 Other amnesia; H43.391 Other vitreous opacities, right eye; H54.7 Unspecified visual loss; R20.2 Paresthesia of skin; F17.200 Nicotine dependence, unspecified, uncomplicated; G43.909 Migraine, unspecified, not intractable, without status migrainosus; N20.0 Calculus of kidney; R74.01 Elevation of levels of liver transaminase levels; E66.9 Obesity, unspecified; Z68.28 Body mass index [BMI] 28.0-28.9, adult; Z88.5 Allergy status to narcotic agent; Z87.81 Personal history of (healed) traumatic fracture
CPT/HCPCS: 36415; 70450; 70496; 70498; 70553; 71275; 80053; 83605; 83735; 84100; 84484; 85025; 85610; 85730; 93005; 94760; 95816; 96361; 96374; 99291